=== PATIENT | male | born 1960 | race Caucasian/White ===

== ENCOUNTER 2018-10-26 10:09 | Emergency (ER) | payer OTHER, MEDICAID, SELFPAY ==
[2018-10-26 10:23] VITALS: BP 144/90; PULSE 84; RESP 12; TEMP 37; O2SAT 97
--- NOTE | 2018-10-26 11:04 | ED.EXTPRO ---
HPI - Extremity Problem General Chief complaint: Extremity Problem,Nontraumatic Stated complaint: Tvt's - Blood Clots in legs Time Seen by Provider: 10/26/18 11:04 Source: patient Mode of arrival: ambulatory Limitations: no limitations History of Present Illness HPI Narrative: 58-year-old male who was seen at [facility] 2 days ago was diagnosed with bilateral lower extremity DVTs. He has a history of DVTs and pulmonary embolism. He states that currently is not having any chest pain or shortness of breath. He is on Pradaxa. He states that he is only occasionally taking this medication because of logistical issues with picking it up. He has been taking it since the diagnosis 3 days ago. He reports today because he continues to have lower extremity swelling and pain. Related Data Home Medications Medication Instructions Recorded Confirmed multivitamin [Multiple Vitamins] 1 tab PO QDAY #0 tab 04/01/16 losartan 50 mg PO DAILY #0 10/08/16 10/26/18 atorvastatin 20 mg PO DAILY 10/26/18 10/26/18 dabigatran etexilate [Pradaxa] 150 mg PO BID 10/26/18 10/26/18 Previous Rx's Medication Instructions Recorded polyethylene glycol 3350 [Miralax] 17 gm PO QDAY #14 gm 10/08/16 furosemide [Lasix] 40 mg PO DAILY 3 Days #6 tab 10/26/18 Review of Systems Constitutional Denies fever(s) Cardiovascular Denies chest pain and Denies dyspnea Respiratory Denies dyspnea Gastrointestinal Gastrointestinal: Denies abdominal pain Musculoskeletal Comments: Lower extremity pain and swelling Integumentary/Breasts Denies lesions and Denies rash Neurologic Denies behavioral changes and Denies confusion Psychiatric Denies behavioral changes and Denies confusion Hematologic/Lymphatic Comments: History of DVTs and PEs [facility] Medical History DVT (deep venous thrombosis) (Acute) Pulmonary embolism (Acute) Social History Smoking Status: Current every day smoker Social History Smoking Status: Current every day smoker Exam Initial Vital Signs Initial Vital Signs: Vital Signs Temperature 98.6 F 10/26/18 10:23 Pulse Rate 84 10/26/18 10:23 Respiratory Rate 12 10/26/18 10:23 Blood Pressure 144/90 H 10/26/18 10:23 Pulse Oximetry 97 10/26/18 10:23 Const General: cooperative, comfortable, well developed, well groomed and No acute distress Orientation: alert, awake and oriented x3 HENMT Head: normal to inspection and normocephalic Resp Effort & Inspection: normal respiratory effort Auscultation: clear to auscultation bilaterally Cardio Rate: regular rate Rhythm: regular rhythm Pulses: radial pulses present and dorsalis pedis present bilaterally GI Inspection: non-distended Skin Lesions: no lesions Rashes: no rashes Neuro Sensory Exam: no sensory deficits noted Extrem General: No cyanosis Other: Patient with bilateral lower extremity swelling from the knees to the ankles. Left greater than right. Psych Appearance: grossly normal and well kempt Course Orders Ordered: ED Orders 10/26/18 10:35 EKG-12 Lead Stat 10/26/18 11:26 Basic Metabolic Panel Stat Complete Blood Count AUTO DIFF Stat Partial Thromboplastin Time Stat Prothrombin Time INR Stat Vital Signs - 8 hr 10/26/18 10:23 10/26/18 12:32 10/26/18 12:45 Temperature 98.6 F Pulse Rate 84 75 68 Respiratory Rate 12 17 Blood Pressure 144/90 H 157/83 H Blood Pressure [Right Arm] 157/83 H Pulse Oximetry 97 97 94 MDM - Extremity (Nontraumatic) Lab Data Result diagrams: 10/26/18 11:26 10/26/18 11:26 Lab Results 10/26/18 10/26/18 10/26/18 Range/Units 11:26 11:26 11:26 WBC 5.0 (4.5-11.0) X10^3/uL RBC 4.74 (4.5-5.9) X10^6/uL Hgb 15.3 (13.5-17.5) g/dL Hct 46.1 (41-53) % MCV 97.2 (80-100) fL MCH 32.2 (26-34) PG MCHC 33.1 (30-36) % RDW 16.0 H (11.6-14.8) % Plt Count 51 L (150-400) X10^3/uL Neut % (Auto) 72.8 (50-75) % Lymph % (Auto) 13.8 L (25-40) % [place] % (Auto) 11.7 (3-14) % Eos % (Auto) 1.1 L (2-4) % Baso % (Auto) 0.6 (0-2) % Neut # (Auto) 3600 (5857-6489) /uL Lymph # (Auto) 700 L (1262-0579) /uL [place] # (Auto) 600 (0-900) /uL Eos # (Auto) 100 (0-450) /uL Baso # (Auto) 0 (0-100) /uL PT 12.1 (10.1-12.7) SECONDS INR 1.0 (0.9-1.3) APTT 45 H (26.4-36.2) SECONDS Sodium 133 L (137-145) mmol/L Potassium 3.7 (3.4-5.1) mmol/L Chloride 97 L (98-107) mmol/L Carbon Dioxide 28 (22-32) mmol/L BUN 11 (9-20) mg/dL Creatinine 0.60 L (0.66-1.25) mg/dL Estimated GFR > 60.0 (>60) mL/min BUN/Creatinine Ratio 18.3 (6-22) Glucose 105 (80-110) mg/dL Calcium 9.0 (8.4-10.2) mg/dL MDM Narrative Medical decision making narrative: Patient without chest pain or shortness of breath. He is currently on Pradaxa. He has known bilateral lower extremity DVTs. I was able to review the notes from this outside emergency visit and saw the ultrasound report. He has been taking his Pradaxa. Informed him that is important he continues this medication. There is no signs of cellulitis. No signs of ischemia. I suspect the swelling and the pain is secondary to the clot burden. His labs here were unremarkable. Will send home with a couple days of Lasix to see if this does not help some of his swelling. He has a follow-up on Friday with his primary doctor. Patient was given follow-up instructions and return precautions. He expressed understanding and agreement plan Discharge Plan Departure Patient Disposition: Home Clinical Impression: DVT (deep venous thrombosis) Qualifiers: DVT location: lower extremity Affected thrombotic vein of extremity: unspecified vein of extremity Chronicity: acute Laterality: bilateral Qualified Code(s): I82.403 - Acute embolism and thrombosis of unspecified deep veins of lower extremity, bilateral Discharge Date/Time: 10/26/18 12:46 Interventions: ED Discharge Assessment Last Done: 10/26/18 12:45 Instructions: DI for Deep Vein Thrombosis Activity Restrictions/Additional Instructions: You do need to keep your follow-up with your primary doctor on Friday. Continue to take your Pradaxa. Return to the emergency department for any chest pain or shortness of breath. Keep your legs elevated as much as possible. Prescriptions: New furosemide [Lasix] 20 mg tablet 40 mg PO DAILY 3 Days Qty: 6 RF: 0 No Action multivitamin [Multiple Vitamins] 1 EACH tablet 1 tab PO QDAY Qty: 0 RF: 0 losartan 50 MG tablet 50 mg PO DAILY Qty: 0 RF: 0 polyethylene glycol 3350 [Miralax] 17 GM powder in packet 17 gm PO QDAY Qty: 14 RF: 0 atorvastatin 20 mg tablet 20 mg PO DAILY RF: 0 Pradaxa 150 mg capsule 150 mg PO BID RF: 0
[2018-10-26 11:34] LABS: Add Manual Diff / Slide Review NO; Basophils Absolute Auto 0 /uL (0-100); Basophils Percent Auto 0.6 % (0-2); Eosinophils Absolute Auto 100 /uL (0-450); Eosinophils Percent Auto 1.1 % (2-4); Hematocrit 46.1 % (41-53); Hemoglobin 15.3 g/dL (13.5-17.5); Lymphocytes Absolute Auto 700 /uL (1100-4500); Lymphocytes Percent Auto 13.8 % (25-40); Mean Corpuscular HGB Conc 33.1 % (30-36); Mean Corpuscular Hemoglobin 32.2 PG (26-34); Mean Corpuscular Volume 97.2 fL (80-100); Monocytes Absolute Auto 600 /uL (0-900); Monocytes Percent Auto 11.7 % (3-14); Neutrophils Absolute Auto 3600 /uL (1500-7000); Neutrophils Percent Auto 72.8 % (50-75); Platelet Count 51 X10^3/uL (150-400); Red Blood Cell Count 4.74 X10^6/uL (4.5-5.9)
[2018-10-26 11:44] LABS: Prothrombin Time 12.1 SECONDS (10.1-12.7)
[2018-10-26 11:47] LABS: PTT Partial Thromboplastin Tim 45 SECONDS (26.4-36.2)
[2018-10-26 11:51] LABS: BUN Creatinine Ratio 18.3 (6-22); Blood Urea Nitrogen 11 mg/dL (9-20); Carbon Dioxide 28 mmol/L (22-32); Chloride 97 mmol/L (98-107); Estimated Glomerular Filt Rate > 60.0 mL/min (>60); Glucose 105 mg/dL (80-110); HEMOLYSIS 43 (0-50); Potassium 3.7 mmol/L (3.4-5.1); Sodium 133 mmol/L (137-145)
[2018-10-26 12:32] VITALS: BP 157/83; PULSE 75; RESP 17; O2SAT 97
[2018-10-26 12:45] VITALS: BP 157/83; PULSE 68; O2SAT 94
== END 2018-10-26 12:46 | disposition home or self-care (01) ==
PROVIDERS: Emergency Provider Emergency Medicine
DX: I82.403 Acute embolism and thrombosis of unspecified deep veins of lower extremity, bilateral (principal); Z86.718 Personal history of other venous thrombosis and embolism; Z86.711 Personal history of pulmonary embolism; Z79.02 Long term (current) use of antithrombotics/antiplatelets
CPT/HCPCS: 36415; 36591; 80048; 85025; 85610; 85730; 93005; 99282; 99284

== ENCOUNTER 2019-01-13 16:30 | Emergency (ER) | payer OTHER, MEDICAID, SELFPAY ==
[2019-01-13] VITALS (8 sets, daily range): BP systolic 85–133; BP diastolic 62–87; PULSE 69–101; RESP 18–23; TEMP 36.8; O2SAT 91–96
--- NOTE | 2019-01-13 16:39 | DI.CT.S_ITS ---
PROCEDURE: CT HEAD/BRAIN WO CON INDICATIONS: syncope, multiple falls, +anticoags TECHNIQUE: Noncontrast 4.5 mm thick angled axial sections acquired from the foramen magnum to the vertex, with coronal and sagittal reformats. For radiation dose reduction, the following was used: automated exposure control, adjustment of mA and/or kV according to patient size. COMPARISON: [facility], CT, CT FACIAL BONES WITHOUT CONTRAST, 07/14/2018, 15:06. [facility], CT, CT CERVICAL SPINE WITHOUT CONTRAST, 07/14/2018, 15:06. [facility], CT, CT HEAD WITHOUT CONTRAST, 07/08/2018, 15:53. [facility], CT, CT HEAD WITHOUT CONTRAST, 11/14/2017, 21:25. FINDINGS: Image quality: Excellent. CSF spaces: Basal cisterns are patent. No extra-axial fluid collections. Ventricles are normal in size and shape. Brain: No midline shift. No intracranial masses or hemorrhage. Richter-white matter interface is normal. There is severe periventricular and subcortical white matter hypoattenuation compatible with chronic microvascular ischemic changes. There are bilateral chronic lacunar infarcts involving the bilateral basal ganglia and extending toward the bilateral weber radiata, stable to comparison exam 07/08/18. Skull and face: Calvarium and visualized facial bones are intact, without suspicious lesions. Sinuses: Visualized sinuses and mastoids are clear. IMPRESSION: No acute intracranial abnormality. Chronic findings as described above. Dictated by: Dewayne Can M.D. on 01/13/2019 at 17:00 Approved by: Dewayne Can M.D. on 01/13/2019 at 17:05
--- NOTE | 2019-01-13 16:40 | DI.RAD.S_ITS ---
PROCEDURE: XR CHEST 1V INDICATIONS: syncope, dizziness, mult falls TECHNIQUE: One view of the chest was acquired. COMPARISON: [facility], , CHEST 1 VIEW, 06/22/2016, 3:23. FINDINGS: Surgical changes and devices: None. Lungs and pleura: Mild hazy opacities are noted projecting over the left perihilar region and lateral left lung base. No pleural effusions or pneumothorax. There is mild prominence of the pulmonary vasculature. Mediastinum: Mediastinal contours appear normal. Heart size is normal. Bones and chest wall: No suspicious bony lesions. Overlying soft tissues appear unremarkable. IMPRESSION: Mild hazy opacities projecting over the left perihilar region and lateral left lung base likely representing atelectasis, less likely aspiration or pneumonia. Dictated by: Dewayne Can M.D. on 01/13/2019 at 17:05 Approved by: Dewayne Can M.D. on 01/13/2019 at 17:07
[2019-01-13 16:56] LABS: Add Manual Diff / Slide Review NO; Basophils Absolute Auto 0 /uL (0-100); Basophils Percent Auto 0.5 % (0-2); Eosinophils Absolute Auto 200 /uL (0-450); Eosinophils Percent Auto 2.3 % (2-4); Hematocrit 47.5 % (41-53); Hemoglobin 16.4 g/dL (13.5-17.5); Lymphocytes Absolute Auto 2600 /uL (1100-4500); Lymphocytes Percent Auto 28.2 % (25-40); Mean Corpuscular HGB Conc 34.4 % (30-36); Mean Corpuscular Hemoglobin 32.2 PG (26-34); Mean Corpuscular Volume 93.7 fL (80-100); Monocytes Absolute Auto 800 /uL (0-900); Monocytes Percent Auto 8.2 % (3-14); Neutrophils Absolute Auto 5600 /uL (1500-7000); Neutrophils Percent Auto 60.8 % (50-75); Platelet Count 91 X10^3/uL (150-400); Red Blood Cell Count 5.07 X10^6/uL (4.5-5.9); Red Cell Distribution Width 16.9 % (11.6-14.8); White Blood Cell Count 9.1 X10^3/uL (4.5-11.0)
--- NOTE | 2019-01-13 16:56 | ED.DIZZY ---
HPI - Dizziness <LANA Lennon-BC - Last Filed: 01/13/19 21:56> General Chief Complaint: Dizziness Stated Complaint: near syncope Time Seen by Provider: 01/13/19 16:44 Source: patient and EMS Mode of arrival: EMS Limitations: no limitations History of Present Illness HPI Narrative: The patient is a 58-year-old male with history of DVT and PE current everyday smoker who presents with a chief complaint of dizziness. He states he has been dizzy for several days. He states he had several falls today because he was dizzy. He admits to drinking hard alcohol so far today. He denies any chest pain or shortness of breath. Denies any loss of consciousness or back pain. He denies any neck pain new incontinence of bowel incontinence of bladder or saddle anesthesia. He states he started some new medications recently but is not sure what or when he started them. He states he did not want to come to the hospital, but some to call 911 after they saw him fall. He does take Pradaxa. Related Data Home Medications Medication Instructions Recorded Confirmed losartan 50 mg PO DAILY #0 10/08/16 01/13/19 atorvastatin 20 mg PO DAILY 10/26/18 01/13/19 dabigatran etexilate [Pradaxa] 150 mg PO BID 10/26/18 01/13/19 carvedilol 3.125 mg PO BID 01/13/19 01/13/19 duloxetine 30 mg PO BID 01/13/19 01/13/19 Previous Rx's Medication Instructions Recorded doxycycline hyclate 100 mg PO BID #20 cap 01/13/19 Allergies Allergy/AdvReac Type Severity Reaction Status Date / Time No Known Drug Allergies Allergy Verified 01/13/19 17:32 Review of Systems <LANA Lennon-BC - Last Filed: 01/13/19 21:56> Review of Systems GENERAL: Denies chills, fatigue, malaise, fever, sweats. HEENT: Denies sinus pain, ear pain, sore throat, difficulty swallowing, dizziness. RESPIRATORY: Denies dyspnea, cough, wheezing, hemoptysis, sputum. CARDIOVASCULAR: See HPI GASTROINTESTINAL: Denies nausea, vomiting, abdominal pain, diarrhea, constipation, melena. : Denies dysuria, frequency, incontinence, hematuria, urinary retention. MUSCULOSKELETAL: denies weakness, joint pain, or bony pain SKIN: Denies rash, skin lesions, or other NEUROLOGIC: See HPI PSYCHIATRIC: See HPI 12 point review of systems is negative except for those stated above PFSH <GELA Lennon - Last Filed: 01/13/19 21:56> Medical History DVT (deep venous thrombosis) (Acute) Pulmonary embolism (Acute) Social History Smoking Status: Current every day smoker Social History Smoking Status: Current every day smoker Exam <GELA Lennon - Last Filed: 01/13/19 21:56> Narrative Exam Narrative: GENERAL: unkempt gentleman with odor of alcohol HEAD: Atraumatic. Normocephalic. No temporal or scalp tenderness. EYES: Pupils equal round and reactive. Extraocular motions intact. No scleral icterus. No injection or drainage. ENT: Nose without bleeding, purulent drainage or septal hematoma. Throat without erythema, tonsillar hypertrophy or exudate. Uvula midline. Airway patent. NECK: Trachea midline. No JVD or lymphadenopathy. Supple, nontender, no meningeal signs. CARDIOVASCULAR: Regular rate and rhythm without murmurs, gallops, or rubs. RESPIRATORY: Clear to auscultation. Breath sounds equal bilaterally. No wheezes, rales, or rhonchi. No cough. No increased respiratory effort. No accessory muscle use. GASTROINTESTINAL: Abdomen soft, non-tender, nondistended. No hepato-splenomegaly, or palpable masses. No guarding. Active bowel sounds all 4 quadrants. EXTREMITIES: No clubbing, cyanosis, or edema. No joint tenderness, effusion, or edema noted. BACK: Nontender without deformity or crepitance. No flank tenderness. No pain to CT or L-spine palpation. NEURO: AOx3. Slightly slurred speech. No gross cranial nerve deficit. SKIN: No rash or erythema. Earl appearance. Initial Vital Signs Initial Vital Signs: Vital Signs Pulse Rate 83 01/13/19 16:36 Respiratory Rate 23 01/13/19 16:36 Blood Pressure 90/64 01/13/19 16:36 Pulse Oximetry 94 01/13/19 16:36 <Yanci Recinos DO - Last Filed: 01/20/19 08:24> Initial Vital Signs Initial Vital Signs: Vital Signs Pulse Rate 83 01/13/19 16:36 Respiratory Rate 23 01/13/19 16:36 Blood Pressure 90/64 01/13/19 16:36 Pulse Oximetry 94 01/13/19 16:36 Course <LANA Lennon-BC - Last Filed: 01/13/19 21:56> Orders Ordered: Discontinued Medications Doxycycline Hyclate (Vibramycin) 100 mg PO NOW ONE Stop: 01/13/19 21:42 Last Admin: 01/13/19 21:56 Dose: 100 mg Sodium Chloride (Normal Saline 0.9%) 1,000 mls @ 1,000 mls/hr IV BOLUS ONE Stop: 01/13/19 19:17 Last Infusion: 01/13/19 19:52 Dose: 0 mls/hr Admin: 01/13/19 18:26 Dose: 1,000 mls/hr Sodium Chloride (Normal Saline 0.9%) 1,000 mls @ 1,000 mls/hr IV BOLUS PRN PRN Reason: Fluid replacement Sodium Chloride (Normal Saline 0.9%) 1,000 mls @ 1,000 mls/hr IV BOLUS ONE Stop: 01/13/19 19:56 Last Infusion: 01/13/19 21:01 Dose: 0 mls/hr Admin: 01/13/19 19:55 Dose: 1,000 mls/hr Vital Signs - 8 hr 01/13/19 16:36 01/13/19 16:50 01/13/19 17:31 Temperature 98.2 F Pulse Rate 83 88 Pulse Rate [Orthostatic Lying] Pulse Rate [Orthostatic Sitting] Pulse Rate [Orthostatic Standing] Respiratory Rate 23 18 Blood Pressure 90/64 Blood Pressure [Left Arm] 104/71 Blood Pressure [Orthostatic Lying] Blood Pressure [Orthostatic Sitting] Blood Pressure [Orthostatic Standing] Pulse Oximetry 94 95 01/13/19 18:35 01/13/19 19:02 01/13/19 19:30 Temperature Pulse Rate 82 88 Pulse Rate [Orthostatic Lying] 80 Pulse Rate [Orthostatic Sitting] 89 Pulse Rate [Orthostatic Standing] 96 H Respiratory Rate 18 19 Blood Pressure Blood Pressure [Left Arm] 113/74 113/76 Blood Pressure [Orthostatic Lying] 105/66 Blood Pressure [Orthostatic Sitting] 102/62 Blood Pressure [Orthostatic Standing] 85/65 L Pulse Oximetry 92 91 01/13/19 21:24 Temperature Pulse Rate Pulse Rate [Orthostatic Lying] 88 Pulse Rate [Orthostatic Sitting] 95 H Pulse Rate [Orthostatic Standing] 101 H Respiratory Rate Blood Pressure Blood Pressure [Left Arm] Blood Pressure [Orthostatic Lying] 132/86 Blood Pressure [Orthostatic Sitting] 123/87 Blood Pressure [Orthostatic Standing] 123/78 Pulse Oximetry <Yanci Recinos DO - Last Filed: 01/20/19 08:24> Orders Ordered: Discontinued Medications Doxycycline Hyclate (Vibramycin) 100 mg PO NOW ONE Stop: 01/13/19 21:42 Last Admin: 01/13/19 21:56 Dose: 100 mg Sodium Chloride (Normal Saline 0.9%) 1,000 mls @ 1,000 mls/hr IV BOLUS ONE Stop: 01/13/19 19:17 Last Infusion: 01/13/19 19:52 Dose: 0 mls/hr Admin: 01/13/19 18:26 Dose: 1,000 mls/hr Sodium Chloride (Normal Saline 0.9%) 1,000 mls @ 1,000 mls/hr IV BOLUS PRN PRN Reason: Fluid replacement Sodium Chloride (Normal Saline 0.9%) 1,000 mls @ 1,000 mls/hr IV BOLUS ONE Stop: 01/13/19 19:56 Last Infusion: 01/13/19 21:01 Dose: 0 mls/hr Admin: 01/13/19 19:55 Dose: 1,000 mls/hr Vital Signs - 8 hr 01/13/19 16:36 01/13/19 16:50 01/13/19 17:31 Temperature 98.2 F Pulse Rate 83 88 Pulse Rate [Orthostatic Lying] Pulse Rate [Orthostatic Sitting] Pulse Rate [Orthostatic Standing] Respiratory Rate 23 18 Blood Pressure 90/64 Blood Pressure [Left Arm] 104/71 Blood Pressure [Orthostatic Lying] Blood Pressure [Orthostatic Sitting] Blood Pressure [Orthostatic Standing] Pulse Oximetry 94 95 01/13/19 18:35 01/13/19 19:02 01/13/19 19:30 Temperature Pulse Rate 82 88 Pulse Rate [Orthostatic Lying] 80 Pulse Rate [Orthostatic Sitting] 89 Pulse Rate [Orthostatic Standing] 96 H Respiratory Rate 18 19 Blood Pressure Blood Pressure [Left Arm] 113/74 113/76 Blood Pressure [Orthostatic Lying] 105/66 Blood Pressure [Orthostatic Sitting] 102/62 Blood Pressure [Orthostatic Standing] 85/65 L Pulse Oximetry 92 91 01/13/19 21:24 Temperature Pulse Rate Pulse Rate [Orthostatic Lying] 88 Pulse Rate [Orthostatic Sitting] 95 H Pulse Rate [Orthostatic Standing] 101 H Respiratory Rate Blood Pressure Blood Pressure [Left Arm] Blood Pressure [Orthostatic Lying] 132/86 Blood Pressure [Orthostatic Sitting] 123/87 Blood Pressure [Orthostatic Standing] 123/78 Pulse Oximetry MDM - Dizziness <LANA Lennon-BC - Last Filed: 01/13/19 21:56> Lab Data Result diagrams: 01/13/19 16:48 01/13/19 16:48 Lab Results 01/13/19 01/13/19 01/13/19 Range/Units 16:48 16:48 16:48 WBC 9.1 (4.5-11.0) X10^3/uL RBC 5.07 (4.5-5.9) X10^6/uL Hgb 16.4 (13.5-17.5) g/dL Hct 47.5 (41-53) % MCV 93.7 (80-100) fL MCH 32.2 (26-34) PG MCHC 34.4 (30-36) % RDW 16.9 H (11.6-14.8) % Plt Count 91 L (150-400) X10^3/uL Neut % (Auto) 60.8 (50-75) % Lymph % (Auto) 28.2 (25-40) % [place] % (Auto) 8.2 (3-14) % Eos % (Auto) 2.3 (2-4) % Baso % (Auto) 0.5 (0-2) % Neut # (Auto) 5600 (9497-4475) /uL Lymph # (Auto) 2600 (8926-5329) /uL [place] # (Auto) 800 (0-900) /uL Eos # (Auto) 200 (0-450) /uL Baso # (Auto) 0 (0-100) /uL PT 12.9 H (10.1-12.7) SECONDS INR 1.1 (0.9-1.3) Sodium 141 (137-145) mmol/L Potassium 4.5 (3.4-5.1) mmol/L Chloride 97 L (98-107) mmol/L Carbon Dioxide 25 (22-32) mmol/L BUN 21 H (9-20) mg/dL Creatinine 1.10 (0.66-1.25) mg/dL Estimated GFR > 60.0 (>60) mL/min BUN/Creatinine Ratio 19.1 (6-22) Glucose 93 (80-110) mg/dL Calcium 9.2 (8.4-10.2) mg/dL Total Bilirubin 1.0 (0.2-1.3) mg/dL AST 238 H (17-59) IU/L ALT 153 H (21-72) IU/L Alkaline Phosphatase 87 (38-126) U/L Total Creatine Kinase 128 (55-170) U/L CK-MB (CK-2) 2.70 H (<2.37) ng/mL CK-MB (CK-2) Rel Index 2.1 (1.5-5.0) % Troponin I < 0.012 (0.01-0.034) ng/mL B-Natriuretic Peptide (<100) Total Protein 8.1 (6.3-8.2) g/dL Albumin 4.7 (3.5-5.0) g/dL Globulin 3.4 (1.7-4.1) g/dL Albumin/Globulin Ratio 1.4 (1.0-2.8) Urine Color Urine Appearance Urine pH (4.5-8.0) Ur Specific [place] (1.000-1.035) Urine Protein (Negative) Urine Glucose (UA) (Negative) g/dL Urine Ketones (NEGATIVE) Urine Occult Blood (Negative) Urine Nitrate (Negative) Urine Bilirubin (NEGATIVE) Urine Urobilinogen (0.2) E.U./dL Ur Leukocyte Esterase (NEGATIVE) Urine RBC (0-5/HPF) Urine WBC (0-5/HPF) Ur Squamous Epith Cells (0-5/HPF) Urine Bacteria (None) Hyaline Casts (None) Ur Culture Indicated? Urine Opiates Screen (Negative) Ur Oxycodone Screen (Negative) Urine Methadone Screen (Negative) Ur Barbiturates Screen (Negative) U Tricyclic Antidepress (Negative) Ur Phencyclidine Scrn (Negative) Ur Amphetamines Screen (Negative) U Methamphetamines Scrn (Negative) Ur MDMA Scrn (Ecstasy) (Negative) U Benzodiazepines Scrn (Negative) Urine Cocaine Screen (Negative) U Marijuana (THC) Screen (Negative) Ethyl Alcohol mg/dL 01/13/19 01/13/19 01/13/19 Range/Units 16:48 16:48 19:25 WBC (4.5-11.0) X10^3/uL RBC (4.5-5.9) X10^6/uL Hgb (13.5-17.5) g/dL Hct (41-53) % MCV (80-100) fL MCH (26-34) PG MCHC (30-36) % RDW (11.6-14.8) % Plt Count (150-400) X10^3/uL Neut % (Auto) (50-75) % Lymph % (Auto) (25-40) % [place] % (Auto) (3-14) % Eos % (Auto) (2-4) % Baso % (Auto) (0-2) % Neut # (Auto) (6168-0646) /uL Lymph # (Auto) (8388-1849) /uL [place] # (Auto) (0-900) /uL Eos # (Auto) (0-450) /uL Baso # (Auto) (0-100) /uL PT (10.1-12.7) SECONDS INR (0.9-1.3) Sodium (137-145) mmol/L Potassium (3.4-5.1) mmol/L Chloride (98-107) mmol/L Carbon Dioxide (22-32) mmol/L BUN (9-20) mg/dL Creatinine (0.66-1.25) mg/dL Estimated GFR (>60) mL/min BUN/Creatinine Ratio (6-22) Glucose (80-110) mg/dL Calcium (8.4-10.2) mg/dL Total Bilirubin (0.2-1.3) mg/dL AST (17-59) IU/L ALT (21-72) IU/L Alkaline Phosphatase (38-126) U/L Total Creatine Kinase 98 (55-170) U/L CK-MB (CK-2) TNP (<2.37) ng/mL CK-MB (CK-2) Rel Index TNP (1.5-5.0) % Troponin I < 0.012 (0.01-0.034) ng/mL B-Natriuretic Peptide < 100 (<100) Total Protein (6.3-8.2) g/dL Albumin (3.5-5.0) g/dL Globulin (1.7-4.1) g/dL Albumin/Globulin Ratio (1.0-2.8) Urine Color Urine Appearance Urine pH (4.5-8.0) Ur Specific [place] (1.000-1.035) Urine Protein (Negative) Urine Glucose (UA) (Negative) g/dL Urine Ketones (NEGATIVE) Urine Occult Blood (Negative) Urine Nitrate (Negative) Urine Bilirubin (NEGATIVE) Urine Urobilinogen (0.2) E.U./dL Ur Leukocyte Esterase (NEGATIVE) Urine RBC (0-5/HPF) Urine WBC (0-5/HPF) Ur Squamous Epith Cells (0-5/HPF) Urine Bacteria (None) Hyaline Casts (None) Ur Culture Indicated? Urine Opiates Screen (Negative) Ur Oxycodone Screen (Negative) Urine Methadone Screen (Negative) Ur Barbiturates Screen (Negative) U Tricyclic Antidepress (Negative) Ur Phencyclidine Scrn (Negative) Ur Amphetamines Screen (Negative) U Methamphetamines Scrn (Negative) Ur MDMA Scrn (Ecstasy) (Negative) U Benzodiazepines Scrn (Negative) Urine Cocaine Screen (Negative) U Marijuana (THC) Screen (Negative) Ethyl Alcohol 264 mg/dL 01/13/19 01/13/19 Range/Units 19:45 19:45 WBC (4.5-11.0) X10^3/uL RBC (4.5-5.9) X10^6/uL Hgb (13.5-17.5) g/dL Hct (41-53) % MCV (80-100) fL MCH (26-34) PG MCHC (30-36) % RDW (11.6-14.8) % Plt Count (150-400) X10^3/uL Neut % (Auto) (50-75) % Lymph % (Auto) (25-40) % [place] % (Auto) (3-14) % Eos % (Auto) (2-4) % Baso % (Auto) (0-2) % Neut # (Auto) (6006-5973) /uL Lymph # (Auto) (3255-0155) /uL [place] # (Auto) (0-900) /uL Eos # (Auto) (0-450) /uL Baso # (Auto) (0-100) /uL PT (10.1-12.7) SECONDS INR (0.9-1.3) Sodium (137-145) mmol/L Potassium (3.4-5.1) mmol/L Chloride (98-107) mmol/L Carbon Dioxide (22-32) mmol/L BUN (9-20) mg/dL Creatinine (0.66-1.25) mg/dL Estimated GFR (>60) mL/min BUN/Creatinine Ratio (6-22) Glucose (80-110) mg/dL Calcium (8.4-10.2) mg/dL Total Bilirubin (0.2-1.3) mg/dL AST (17-59) IU/L ALT (21-72) IU/L Alkaline Phosphatase (38-126) U/L Total Creatine Kinase (55-170) U/L CK-MB (CK-2) (<2.37) ng/mL CK-MB (CK-2) Rel Index (1.5-5.0) % Troponin I (0.01-0.034) ng/mL B-Natriuretic Peptide (<100) Total Protein (6.3-8.2) g/dL Albumin (3.5-5.0) g/dL Globulin (1.7-4.1) g/dL Albumin/Globulin Ratio (1.0-2.8) Urine Color Yellow Urine Appearance Clear Urine pH 6.5 (4.5-8.0) Ur Specific [place] 1.010 (1.000-1.035) Urine Protein Negative (Negative) Urine Glucose (UA) Negative (Negative) g/dL Urine Ketones Negative (NEGATIVE) Urine Occult Blood Negative (Negative) Urine Nitrate Negative (Negative) Urine Bilirubin Negative (NEGATIVE) Urine Urobilinogen 0.2 (0.2) E.U./dL Ur Leukocyte Esterase Negative (NEGATIVE) Urine RBC 0-1/hpf (0-5/HPF) Urine WBC 0-1/hpf (0-5/HPF) Ur Squamous Epith Cells 0-1 /hpf (0-5/HPF) Urine Bacteria None seen (None) Hyaline Casts 1-5/lpf (None) Ur Culture Indicated? Cult not indicated Urine Opiates Screen Negative (Negative) Ur Oxycodone Screen Negative (Negative) Urine Methadone Screen Negative (Negative) Ur Barbiturates Screen Negative (Negative) U Tricyclic Antidepress Negative (Negative) Ur Phencyclidine Scrn Negative (Negative) Ur Amphetamines Screen Negative (Negative) U Methamphetamines Scrn Negative (Negative) Ur MDMA Scrn (Ecstasy) Negative (Negative) U Benzodiazepines Scrn Negative (Negative) Urine Cocaine Screen Negative (Negative) U Marijuana (THC) Screen Negative (Negative) Ethyl Alcohol mg/dL Imaging Data CT scan - head: Radiologist's impression: [address] [address] [address] Scan Report Signed Patient: Andrea Pastrana DMR#: [id number] : 9Acct:[id number] Age/Sex: 58 / MDate of Service: 01/13/19 Loc: ED Accession Number: [id number] Procedure: CT head/brain wo con Ordering Provider: Yanci Recinos D.O. PROCEDURE: CT HEAD/BRAIN WO CON INDICATIONS: syncope, multiple falls, +anticoags TECHNIQUE: Noncontrast 4.5 mm thick angled axial sections acquired from the foramen magnum to the vertex, with coronal and sagittal reformats. For radiation dose reduction, the following was used: automated exposure control, adjustment of mA and/or kV according to patient size. COMPARISON: [facility], CT, CT FACIAL BONES WITHOUT CONTRAST, 07/14/2018, 15:06. [facility], CT, CT CERVICAL SPINE WITHOUT CONTRAST, 07/14/2018, 15:06. [facility], CT, CT HEAD WITHOUT CONTRAST, 07/08/2018, 15:53. [facility], CT, CT HEAD WITHOUT CONTRAST, 11/14/2017, 21:25. FINDINGS: Image quality: Excellent. CSF spaces: Basal cisterns are patent. No extra-axial fluid collections. Ventricles are normal in size and shape. Brain: No midline shift. No intracranial masses or hemorrhage. Richter-white matter interface is normal. There is severe periventricular and subcortical white matter hypoattenuation compatible with chronic microvascular ischemic changes. There are bilateral chronic lacunar infarcts involving the bilateral basal ganglia and extending toward the bilateral weber radiata, stable to comparison exam 07/08/18. Skull and face: Calvarium and visualized facial bones are intact, without suspicious lesions. Sinuses: Visualized sinuses and mastoids are clear. IMPRESSION: No acute intracranial abnormality. Chronic findings as described above. Dictated by: Dewayne Can M.D. on 01/13/2019 at 17:00 Approved by: Dewayne Can M.D. on 01/13/2019 at 17:05 Chest x-ray: Radiologist's impression: [address] [address] XRay Report Signed Patient: Andrea Pastrana [facility]#: [id number] : 9Acct:[id number] Age/Sex: 58 / MDate of Service: 01/13/19 Loc: ED Accession Number: [id number] Procedure: XR chest 1V Ordering Provider: Yanci Recinos D.O. PROCEDURE: XR CHEST 1V INDICATIONS: syncope, dizziness, mult falls TECHNIQUE: One view of the chest was acquired. [facility]. FINDINGS: Surgical changes and devices: None. Lungs and pleura: Mild hazy opacities are noted projecting over the left perihilar region and lateral left lung base. No pleural effusions or pneumothorax. There is mild prominence of the pulmonary vasculature. Mediastinum: Mediastinal contours appear normal. Heart size is normal. Bones and chest wall: No suspicious bony lesions. Overlying soft tissues appear unremarkable. IMPRESSION: Mild hazy opacities projecting over the left perihilar region and lateral left lung base likely representing atelectasis, less likely aspiration or pneumonia. Dictated by: Dewayne Can M.D. on 01/13/2019 at 17:05 Approved by: Dewayne Can M.D. on 01/13/2019 at 17:07 Chest CTA: Radiologist's impression: [address] [address] [address] Scan Report Signed Patient: Andrea Pastrana [facility]#: [id number] : 9Acct:[id number] Age/Sex: 58 / MDate of Service: 01/13/19 Loc: ED Accession Number: [id number] Procedure: CT angio chest PE protocol Ordering Provider: Yanci Owens PROCEDURE: CT ANGIO CHEST PE PROTOCOL INDICATIONS: near syncope, hx pe TECHNIQUE: After the administration of intravenous contrast, 2 mm thick sections acquired from the pulmonary apices to the posterior costophrenic angles. 3-dimensional maximum intensity projection (MIP) coronal and sagittal reformats were then acquired through the thorax. For radiation dose reduction, the following was used: automated exposure control, adjustment of mA and/or kV according to patient size. COMPARISON: [facility], CT, CT HEAD/BRAIN WO CON, 01/13/2019, 16:50. [facility], CT, CT HEAD WITHOUT CONTRAST, 07/14/2018, 15:06. [facility], CT, CT CERVICAL SPINE WITHOUT CONTRAST, 07/14/2018, 15:06. [facility], CT, CT HEAD WITHOUT CONTRAST, 07/08/2018, 15:53. FINDINGS: Image quality: Excellent. Pulmonary arteries: Pulmonary arteries are normal in size, and demonstrate no intraluminal filling defects to suggest central pulmonary embolism. Lungs and pleura: No pleural effusions or pneumothoraces. There is atelectasis versus pleural parenchymal scarring at the posteromedial right lung base. There are multiple mixed solid and ground glass pulmonary noduleswith potential internal cavitation in the right upper lobe with additional groundglass opacities, and 2 cm in greatest diameter on axial image 55 of series 5. There is scattered emphysematous changes. Mediastinum: Heart size is normal, without pericardial effusion. No mediastinal or hilar adenopathy. Thoracic aorta is normal in caliber and enhancement. Bones and chest wall: There are chronic healed posterior inferior left rib fractures. No axillary or supraclavicular adenopathy. There are age-indeterminate compression deformities of the T5 and T6 vertebral bodies with approximately 30% height loss and Abdomen: There is diffuse hepatic steatosis. IMPRESSION: 1. No CTA evidence of central pulmonary embolism. 2. Mixed solid and ground glass pulmonary nodules with potential internal cavitation and ground glass opacities within the right upper lobe, concerning for pneumonia (possibly an atypical or fungal infection such as aspergillosis). Recommend followup CT to document resolution of these findings and to exclude an underlying pulmonary malignancy. 3. Diffuse hepatic steatosis. 4. Age-indeterminate fracture deformities of the T5 and T6 vertebral bodies. Correlation with point tenderness suggested. Findings discussed with referring provider MANAGER MACHINEKendal Owens by telephone by Dr. Can at approximately 9:00 PM on 01/13/19. ECG Data Attestation: I personally reviewed and interpreted this ECG as follows: Interpretation: Sinus rhythm, rate 87. ST elevations noted. No ectopy noted. Viewed by Dr Recinos MDM Narrative Medical decision making narrative: The patient is a 58-year-old male who presents with chief complaint of dizziness. He denies any falls, but given his intoxicated status, I obtained a head CT. This came back negative. The patient presented hypotensive in the 90s, and responded well to fluids. His initial set of orthostatics were positive, with his systolic dropping 85 when standing. Second set was negative. The patient was noted to have a very elevated alcohol at 268. The patient apparently presented with a combination of alcohol intoxication and dehydration. However he is resistant to believe that this is related to his dizziness. Otherwise the patient had 2-troponins, negative BNP, negative head CT. Given his near syncopal event combined with his history of PEs, I obtained a CT PA, which came back with no evidence of pulmonary embolism. There is concern of an atypical pneumonia, which I have elected to treat him with doxycycline for. I discussed it may be a fungal in nature, or an underlying pulmonary nodule. The patient states understanding. He is not exactly sure who his primary care provider is, so I referred him to the health land resource specialist. The patient had a 2nd set of orthostatics, which came back within normal limits. He expressed desire to go home. I discussed at length that he should stop drinking as much alcohol and discussed at length follow up with PCP. Discussed come back to ER for any acute concerns such as chest pain, shortness of breath etc. Of note the CT did reveal some old T-spine fractures, but the patient states these are likely old. He has no pain to palpation of T-spine at this point time, so there is no clinical correlation. <Yanci Recinos, DO - Last Filed: 01/20/19 08:24> Lab Data Lab Results 01/13/19 01/13/19 01/13/19 Range/Units 16:48 16:48 16:48 WBC 9.1 (4.5-11.0) X10^3/uL RBC 5.07 (4.5-5.9) X10^6/uL Hgb 16.4 (13.5-17.5) g/dL Hct 47.5 (41-53) % MCV 93.7 (80-100) fL MCH 32.2 (26-34) PG MCHC 34.4 (30-36) % RDW 16.9 H (11.6-14.8) % Plt Count 91 L (150-400) X10^3/uL Neut % (Auto) 60.8 (50-75) % Lymph % (Auto) 28.2 (25-40) % [place] % (Auto) 8.2 (3-14) % Eos % (Auto) 2.3 (2-4) % Baso % (Auto) 0.5 (0-2) % Neut # (Auto) 5600 (4315-0314) /uL Lymph # (Auto) 2600 (1501-3081) /uL [place] # (Auto) 800 (0-900) /uL Eos # (Auto) 200 (0-450) /uL Baso # (Auto) 0 (0-100) /uL PT 12.9 H (10.1-12.7) SECONDS INR 1.1 (0.9-1.3) Sodium 141 (137-145) mmol/L Potassium 4.5 (3.4-5.1) mmol/L Chloride 97 L (98-107) mmol/L Carbon Dioxide 25 (22-32) mmol/L BUN 21 H (9-20) mg/dL Creatinine 1.10 (0.66-1.25) mg/dL Estimated GFR > 60.0 (>60) mL/min BUN/Creatinine Ratio 19.1 (6-22) Glucose 93 (80-110) mg/dL Calcium 9.2 (8.4-10.2) mg/dL Total Bilirubin 1.0 (0.2-1.3) mg/dL AST 238 H (17-59) IU/L ALT 153 H (21-72) IU/L Alkaline Phosphatase 87 (38-126) U/L Total Creatine Kinase 128 (55-170) U/L CK-MB (CK-2) 2.70 H (<2.37) ng/mL CK-MB (CK-2) Rel Index 2.1 (1.5-5.0) % Troponin I < 0.012 (0.01-0.034) ng/mL B-Natriuretic Peptide (<100) Total Protein 8.1 (6.3-8.2) g/dL Albumin 4.7 (3.5-5.0) g/dL Globulin 3.4 (1.7-4.1) g/dL Albumin/Globulin Ratio 1.4 (1.0-2.8) Urine Color Urine Appearance Urine pH (4.5-8.0) Ur Specific [place] (1.000-1.035) Urine Protein (Negative) Urine Glucose (UA) (Negative) g/dL Urine Ketones (NEGATIVE) Urine Occult Blood (Negative) Urine Nitrate (Negative) Urine Bilirubin (NEGATIVE) Urine Urobilinogen (0.2) E.U./dL Ur Leukocyte Esterase (NEGATIVE) Urine RBC (0-5/HPF) Urine WBC (0-5/HPF) Ur Squamous Epith Cells (0-5/HPF) Urine Bacteria (None) Hyaline Casts (None) Ur Culture Indicated? Urine Opiates Screen (Negative) Ur Oxycodone Screen (Negative) Urine Methadone Screen (Negative) Ur Barbiturates Screen (Negative) U Tricyclic Antidepress (Negative) Ur Phencyclidine Scrn (Negative) Ur Amphetamines Screen (Negative) U Methamphetamines Scrn (Negative) Ur MDMA Scrn (Ecstasy) (Negative) U Benzodiazepines Scrn (Negative) Urine Cocaine Screen (Negative) U Marijuana (THC) Screen (Negative) Ethyl Alcohol mg/dL 01/13/19 01/13/19 01/13/19 Range/Units 16:48 16:48 19:25 WBC (4.5-11.0) X10^3/uL RBC (4.5-5.9) X10^6/uL Hgb (13.5-17.5) g/dL Hct (41-53) % MCV (80-100) fL MCH (26-34) PG MCHC (30-36) % RDW (11.6-14.8) % Plt Count (150-400) X10^3/uL Neut % (Auto) (50-75) % Lymph % (Auto) (25-40) % [place] % (Auto) (3-14) % Eos % (Auto) (2-4) % Baso % (Auto) (0-2) % Neut # (Auto) (2928-0886) /uL Lymph # (Auto) (6439-6292) /uL [place] # (Auto) (0-900) /uL Eos # (Auto) (0-450) /uL Baso # (Auto) (0-100) /uL PT (10.1-12.7) SECONDS INR (0.9-1.3) Sodium (137-145) mmol/L Potassium (3.4-5.1) mmol/L Chloride (98-107) mmol/L Carbon Dioxide (22-32) mmol/L BUN (9-20) mg/dL Creatinine (0.66-1.25) mg/dL Estimated GFR (>60) mL/min BUN/Creatinine Ratio (6-22) Glucose (80-110) mg/dL Calcium (8.4-10.2) mg/dL Total Bilirubin (0.2-1.3) mg/dL AST (17-59) IU/L ALT (21-72) IU/L Alkaline Phosphatase (38-126) U/L Total Creatine Kinase 98 (55-170) U/L CK-MB (CK-2) TNP (<2.37) ng/mL CK-MB (CK-2) Rel Index TNP (1.5-5.0) % Troponin I < 0.012 (0.01-0.034) ng/mL B-Natriuretic Peptide < 100 (<100) Total Protein (6.3-8.2) g/dL Albumin (3.5-5.0) g/dL Globulin (1.7-4.1) g/dL Albumin/Globulin Ratio (1.0-2.8) Urine Color Urine Appearance Urine pH (4.5-8.0) Ur Specific [place] (1.000-1.035) Urine Protein (Negative) Urine Glucose (UA) (Negative) g/dL Urine Ketones (NEGATIVE) Urine Occult Blood (Negative) Urine Nitrate (Negative) Urine Bilirubin (NEGATIVE) Urine Urobilinogen (0.2) E.U./dL Ur Leukocyte Esterase (NEGATIVE) Urine RBC (0-5/HPF) Urine WBC (0-5/HPF) Ur Squamous Epith Cells (0-5/HPF) Urine Bacteria (None) Hyaline Casts (None) Ur Culture Indicated? Urine Opiates Screen (Negative) Ur Oxycodone Screen (Negative) Urine Methadone Screen (Negative) Ur Barbiturates Screen (Negative) U Tricyclic Antidepress (Negative) Ur Phencyclidine Scrn (Negative) Ur Amphetamines Screen (Negative) U Methamphetamines Scrn (Negative) Ur MDMA Scrn (Ecstasy) (Negative) U Benzodiazepines Scrn (Negative) Urine Cocaine Screen (Negative) U Marijuana (THC) Screen (Negative) Ethyl Alcohol 264 mg/dL 01/13/19 01/13/19 Range/Units 19:45 19:45 WBC (4.5-11.0) X10^3/uL RBC (4.5-5.9) X10^6/uL Hgb (13.5-17.5) g/dL Hct (41-53) % MCV (80-100) fL MCH (26-34) PG MCHC (30-36) % RDW (11.6-14.8) % Plt Count (150-400) X10^3/uL Neut % (Auto) (50-75) % Lymph % (Auto) (25-40) % [place] % (Auto) (3-14) % Eos % (Auto) (2-4) % Baso % (Auto) (0-2) % Neut # (Auto) (6910-8486) /uL Lymph # (Auto) (7104-9434) /uL [place] # (Auto) (0-900) /uL Eos # (Auto) (0-450) /uL Baso # (Auto) (0-100) /uL PT (10.1-12.7) SECONDS INR (0.9-1.3) Sodium (137-145) mmol/L Potassium (3.4-5.1) mmol/L Chloride (98-107) mmol/L Carbon Dioxide (22-32) mmol/L BUN (9-20) mg/dL Creatinine (0.66-1.25) mg/dL Estimated GFR (>60) mL/min BUN/Creatinine Ratio (6-22) Glucose (80-110) mg/dL Calcium (8.4-10.2) mg/dL Total Bilirubin (0.2-1.3) mg/dL AST (17-59) IU/L ALT (21-72) IU/L Alkaline Phosphatase (38-126) U/L Total Creatine Kinase (55-170) U/L CK-MB (CK-2) (<2.37) ng/mL CK-MB (CK-2) Rel Index (1.5-5.0) % Troponin I (0.01-0.034) ng/mL B-Natriuretic Peptide (<100) Total Protein (6.3-8.2) g/dL Albumin (3.5-5.0) g/dL Globulin (1.7-4.1) g/dL Albumin/Globulin Ratio (1.0-2.8) Urine Color Yellow Urine Appearance Clear Urine pH 6.5 (4.5-8.0) Ur Specific [place] 1.010 (1.000-1.035) Urine Protein Negative (Negative) Urine Glucose (UA) Negative (Negative) g/dL Urine Ketones Negative (NEGATIVE) Urine Occult Blood Negative (Negative) Urine Nitrate Negative (Negative) Urine Bilirubin Negative (NEGATIVE) Urine Urobilinogen 0.2 (0.2) E.U./dL Ur Leukocyte Esterase Negative (NEGATIVE) Urine RBC 0-1/hpf (0-5/HPF) Urine WBC 0-1/hpf (0-5/HPF) Ur Squamous Epith Cells 0-1 /hpf (0-5/HPF) Urine Bacteria None seen (None) Hyaline Casts 1-5/lpf (None) Ur Culture Indicated? Cult not indicated Urine Opiates Screen Negative (Negative) Ur Oxycodone Screen Negative (Negative) Urine Methadone Screen Negative (Negative) Ur Barbiturates Screen Negative (Negative) U Tricyclic Antidepress Negative (Negative) Ur Phencyclidine Scrn Negative (Negative) Ur Amphetamines Screen Negative (Negative) U Methamphetamines Scrn Negative (Negative) Ur MDMA Scrn (Ecstasy) Negative (Negative) U Benzodiazepines Scrn Negative (Negative) Urine Cocaine Screen Negative (Negative) U Marijuana (THC) Screen Negative (Negative) Ethyl Alcohol mg/dL Discharge Plan Departure Patient Disposition: Home Clinical Impression: Atypical pneumonia, Dizziness, Acute dehydration Alcohol intoxication Qualifiers: Complication of substance-induced condition: uncomplicated Qualified Code(s): F10.920 - Alcohol use, unspecified with intoxication, uncomplicated Discharge Date/Time: 01/13/19 22:11 Interventions: ED Discharge Assessment Last Done: 01/13/19 22:11 Instructions: DI for Dehydration -- Adult, DI for Alcohol Abuse, DI for Dizziness-Nonvertigo, DI for Atypical Pneumonia Activity Restrictions/Additional Instructions: Today we did lots of evaluation. You had 2-cardiac enzymes, a normal head CT, a chest CT with no evidence of pulmonary embolism. However you do have evidence of an atypical pneumonia. I have started you on an antibiotic. You have also received IV fluid, which you have responded well to. Please follow-up with primary care provider. I have given contact information to the health land resource specialist. Please come back to emergency department with any acute concerns such as chest pain, shortness of breath etc. Prescriptions: New doxycycline hyclate 100 mg capsule 100 mg PO BID Qty: 20 RF: 0 No Action losartan 50 MG tablet 50 mg PO DAILY Qty: 0 RF: 0 atorvastatin 20 mg tablet 20 mg PO DAILY RF: 0 Pradaxa 150 mg capsule 150 mg PO BID RF: 0 carvedilol 3.125 mg tablet 3.125 mg PO BID RF: 0 duloxetine 30 mg capsule,delayed release(DR/EC) 30 mg PO BID RF: 0 Referrals: [facility] [Outside] <Yanci Recinos DO - Last Filed: 01/20/19 08:24> Cosign ED Attending Mindyature Attestation: I was immediately available in the department for consultation. This documentation has been reviewed and I agree with assessment and plan. Supervised by Yanci Recinos DO
[2019-01-13 16:58] LABS: INR 1.1 (0.9-1.3); Prothrombin Time 12.9 SECONDS (10.1-12.7)
[2019-01-13 17:01] LABS: Alanine Aminotransferase 153 IU/L (21-72); Albumin 4.7 g/dL (3.5-5.0); Albumin Globulin Ratio 1.4 (1.0-2.8); Alkaline Phosphatase 87 U/L (38-126); Aspartate Aminotransferase 238 IU/L (17-59); BUN Creatinine Ratio 19.1 (6-22); Blood Urea Nitrogen 21 mg/dL (9-20); Calcium 9.2 mg/dL (8.4-10.2); Carbon Dioxide 25 mmol/L (22-32); Chloride 97 mmol/L (98-107); Creatine Kinase 128 U/L (55-170); Estimated Glomerular Filt Rate > 60.0 mL/min (>60); Globulin 3.4 g/dL (1.7-4.1); Glucose 93 mg/dL (80-110); Potassium 4.5 mmol/L (3.4-5.1); Sodium 141 mmol/L (137-145); Total Protein 8.1 g/dL (6.3-8.2)
[2019-01-13 17:02] LABS: Ethanol (ETOH) 264 mg/dL; HEMOLYSIS 69 (0-50)
[2019-01-13 17:11] LABS: Troponin I < 0.012 ng/mL (0.01-0.034)
[2019-01-13 17:18] LABS: CKMB % Relative Index 2.1 % (1.5-5.0)
[2019-01-13 18:06] LABS: B Type Natriuretic Peptide < 100 (<100)
[2019-01-13] MEDS: SODIUM CHLORIDE 0.9% 1,000 ML 1000 ML IV ×2 (18:26→19:55)
--- NOTE | 2019-01-13 18:57 | DI.CT.S_ITS ---
PROCEDURE: CT ANGIO CHEST PE PROTOCOL INDICATIONS: near syncope, hx pe TECHNIQUE: After the administration of intravenous contrast, 2 mm thick sections acquired from the pulmonary apices to the posterior costophrenic angles. 3-dimensional maximum intensity projection (MIP) coronal and sagittal reformats were then acquired through the thorax. For radiation dose reduction, the following was used: automated exposure control, adjustment of mA and/or kV according to patient size. COMPARISON: [facility], CT, CT HEAD/BRAIN WO CON, 01/13/2019, 16:50. [facility], CT, CT HEAD WITHOUT CONTRAST, 07/14/2018, 15:06. [facility], CT, CT CERVICAL SPINE WITHOUT CONTRAST, 07/14/2018, 15:06. [facility], CT, CT HEAD WITHOUT CONTRAST, 07/08/2018, 15:53. FINDINGS: Image quality: Excellent. Pulmonary arteries: Pulmonary arteries are normal in size, and demonstrate no intraluminal filling defects to suggest central pulmonary embolism. Lungs and pleura: No pleural effusions or pneumothoraces. There is atelectasis versus pleural parenchymal scarring at the posteromedial right lung base. There are multiple mixed solid and ground glass pulmonary noduleswith potential internal cavitation in the right upper lobe with additional groundglass opacities, and 2 cm in greatest diameter on axial image 55 of series 5. There is scattered emphysematous changes. Mediastinum: Heart size is normal, without pericardial effusion. No mediastinal or hilar adenopathy. Thoracic aorta is normal in caliber and enhancement. Bones and chest wall: There are chronic healed posterior inferior left rib fractures. No axillary or supraclavicular adenopathy. There are age-indeterminate compression deformities of the T5 and T6 vertebral bodies with approximately 30% height loss and Abdomen: There is diffuse hepatic steatosis. IMPRESSION: 1. No CTA evidence of central pulmonary embolism. 2. Mixed solid and ground glass pulmonary nodules with potential internal cavitation and ground glass opacities within the right upper lobe, concerning for pneumonia (possibly an atypical or fungal infection such as aspergillosis). Recommend followup CT to document resolution of these findings and to exclude an underlying pulmonary malignancy. 3. Diffuse hepatic steatosis. 4. Age-indeterminate fracture deformities of the T5 and T6 vertebral bodies. Correlation with point tenderness suggested. Findings discussed with referring provider LANA Owens by telephone by Dr. Can at approximately 9:00 PM on 01/13/19. Dictated by: Dewayne Can M.D. on 01/13/2019 at 20:50 Approved by: Dewayne Can M.D. on 01/13/2019 at 21:05
[2019-01-13 19:44] LABS: Creatine Kinase 98 U/L (55-170)
[2019-01-13 19:51] LABS: Bacteria Urine None Seen
[2019-01-13 19:53] LABS: Appearance Urine UA CLEAR; Bilirubin Urine UA NEGATIVE (NEGATIVE); Color Urine UA YELLOW; Glucose Urine UA NEGATIVE (Negative); Ketones Urine UA NEGATIVE (NEGATIVE); Leukocyte Esterase Urine UA NEGATIVE (NEGATIVE); Nitrite Urine UA NEGATIVE (Negative); Occult Blood Urine UA NEGATIVE (Negative); Protein Urine UA NEGATIVE (Negative); Urobilinogen Urine UA 0.2 E.U./dL (0.2); pH Urine UA 6.5 (4.5-8.0)
--- NOTE | 2019-01-13 19:55 | CM.MNRNOTE ---
pt received one liter of IVF normal saline from the medics. the fluids finished in the ER.
[2019-01-13 19:56] LABS: Urine Amphetamines Negative (Negative); Urine Barbiturates Negative (Negative); Urine Benzodiazepines Negative (Negative); Urine Cocaine Negative (Negative); Urine MDMA Negative (Negative); Urine Methadone Negative (Negative); Urine Methamphetamines Negative (Negative); Urine Morphine/Opi cutoff 2000 Negative (Negative); Urine Oxycodone Negative (Negative); Urine Phencyclidine Negative (Negative); Urine Tetrahydrocannabinol Negative (Negative); Urine Tricyclic Antidepressant Negative (Negative)
[2019-01-13 19:57] LABS: Troponin I < 0.012 ng/mL (0.01-0.034)
[2019-01-13 19:59] LABS: Culture Indicated Urine Cult Not Indicated; Hyaline Casts Urine 1-5/LPF; RBC Urine 0-1/HPF (0-5/HPF); Squamous Epithelial Cell Urine 0-1 /HPF (0-5/HPF); WBC Urine 0-1/HPF (0-5/HPF)
--- NOTE | 2019-01-13 21:35 | PC.NURSE ---
Pt. stable on feet.
[2019-01-13] MEDS: DOXYCYCLINE HYCLATE 100 MG TABLET PO (21:56)
== END 2019-01-13 22:11 | disposition home or self-care (01) ==
PROVIDERS: Emergency Medicine; Emergency Provider Nurse Practitioner Family
DX: J18.9 Pneumonia, unspecified organism (principal); R42 Dizziness and giddiness; E86.0 Dehydration; F10.920 Alcohol use, unspecified with intoxication, uncomplicated; W19.XXXA Unspecified fall, initial encounter; R00.0 Tachycardia, unspecified; Y90.8 Blood alcohol level of 240 mg/100 ml or more; Z79.01 Long term (current) use of anticoagulants; Z86.711 Personal history of pulmonary embolism; Z86.718 Personal history of other venous thrombosis and embolism; Z91.81 History of falling
CPT/HCPCS: 36591; 70450; 71045; 71275; 80053; 80305; 80320; 81001; 82550; 82553; 83880; 84484; 85025; 85610; 93005; 96360; 96361; 99285; Q9967

== ENCOUNTER 2019-07-26 03:36 | Emergency (ER) | payer OTHER, MEDICAID, SELFPAY ==
[2019-07-26 03:36] VITALS: BP 156/82; PULSE 87; RESP 18; TEMP 36.2; O2SAT 97; BMI 28.6
--- NOTE | 2019-07-26 03:55 | ED.EXTPRO ---
HPI - Extremity Problem General Chief complaint: Extremity Problem,Nontraumatic Stated complaint: Left Foot Pain Time Seen by Provider: 07/26/19 03:44 Source: patient and EMS Mode of arrival: EMS Limitations: no limitations History of Present Illness HPI Narrative: The patient was at the [facility], he was celebrating his birthday. He was discussing blood clots with his friends. He is complaining of left foot pain. He is drinking alcohol. He arrives here, laughing and in no apparent distress. He denies chest pain or dyspnea. He was seen at [facility] October 2018, a left DVT was found. He injuries left foot approximately 2 weeks ago. He is complaining of left mid foot pain. He was seen at [facility] for the injuries at that time. The left foot x-ray is normal. He is intoxicated. He is not a good historian, he had a new detail on the [facility] regarding the foot injury. He miscalculated the DVT by months. He is supposed to be taking Pradaxa 2 times daily. He is not compliant with medications, although he says he did take a dose today. He has had no falls or injuries. He denies recent illness. Related Data Home Medications Medication Instructions Recorded Confirmed losartan 50 mg PO DAILY #0 10/08/16 01/13/19 atorvastatin 20 mg PO DAILY 10/26/18 01/13/19 dabigatran etexilate [Pradaxa] 150 mg PO BID 10/26/18 01/13/19 carvedilol 3.125 mg PO BID 01/13/19 01/13/19 duloxetine 30 mg PO BID 01/13/19 01/13/19 Previous Rx's Medication Instructions Recorded doxycycline hyclate 100 mg PO BID #20 cap 01/13/19 dabigatran etexilate [Pradaxa] 150 mg PO BID #120 cap 07/26/19 Allergies Allergy/AdvReac Type Severity Reaction Status Date / Time No Known Drug Allergies Allergy Verified 01/13/19 17:32 Review of Systems Review of Systems ROS Unobtainable: All systems reviewed & are unremarkable except as noted in HPI and below Constitutional Constitutional: Denies chills, Denies fatigue, Denies fever(s) and Denies malaise Cardiovascular Cardiovascular: Denies chest pain, Denies syncope, Denies rapid heart rate, Denies edema and Denies dyspnea Respiratory Respiratory: Denies cough, Denies dyspnea and Denies wheezing Gastrointestinal Gastrointestinal: Denies abdominal pain and Denies vomiting Musculoskeletal Musculoskeletal: Denies back pain, Denies muscle weakness, Denies numbness and Denies tingling Integumentary/Breasts Skin/Breast: Denies pruritus, Denies erythema, Denies rash and Denies wounds Neurologic Neurologic: Denies syncope, Denies numbness and Denies tingling Psychiatric Psychiatric: Reports as per HPI Endocrine Endocrine: Denies fatigue Hematologic/Lymphatic Hematologic/Lymphatic: Reports as per HPI (The patient is anticoagulated) Allergic/Immunologic Allergic/Immunologic: Denies wheezing Patient History Medical History (Updated 07/26/19 @ 06:10 by Douglas Salazar MD) DVT (deep venous thrombosis) (Acute) Pulmonary embolism (Acute) Surgical History (Updated 07/26/19 @ 05:57 by Douglas Salazar MD) No significant past surgical history (Acute) Social History Smoking Status: Current every day smoker Smoking Status: Current every day smoker alcohol intake frequency: 3 or more drinks per day Substance Use Type: does not use Exam Initial Vital Signs Initial Vital Signs: Vital Signs Temperature 97.2 F L 07/26/19 03:36 Pulse Rate 87 07/26/19 03:36 Respiratory Rate 18 07/26/19 03:36 Blood Pressure 156/82 H 07/26/19 03:36 Pulse Oximetry 97 07/26/19 03:36 Const General: cooperative and well developed Nutritional Appearance: well nourished [facility] Head: normocephalic and atraumatic Mouth: oral mucosae normal Eyes Pupils: PERRL EOM: nystagmus Neck Neck: No JVD Resp Effort & Inspection: normal respiratory effort, able to speak in complete sentences, no respiratory distress and no use of accessory muscles Auscultation: clear to auscultation bilaterally Cardio Rate: regular rate Rhythm: regular rhythm Heart Sounds: no click, no gallops, no murmurs and no rubs Pulses: normal peripheral pulses GI Inspection: non-distended Palpation: soft, no hepatosplenomegaly, No guarding, No pulsatile mass and No tender Auscultation: normal bowel sounds Skin General: no rashes or lesions noted, No jaundice and No petechiae Neuro General: alert, oriented x3, gait normal and no focal motor deficits Cranial Nerves: nystagmus Speech: speech normal Extrem General: full ROM, no pedal edema and no calf tenderness Other: The left dorsalis pedis pulse is normal. He has tenderness in the arch the left foot, but no palpable defects. Movement at the MCPs is normal. Homans sign on the left leg is negative. Course Course Course Narrative: The patient is now a little more clear/coherent upon arrival. He is advised to stay with Pradaxa 2 times daily. He is advised recheck with his doctor in 4-6 weeks, return to an ER if he develops chest pain or problems breathing. I do not have a direct comparison of the DVT study night versus ultrasound from several months ago. By reading the reports seems like the ultrasound is somewhat larger now. I discussed the importance of being compliant with the medications. Orders Ordered: ED Orders 07/26/19 04:15 Basic Metabolic Panel Stat Complete Blood Count AUTO DIFF Stat D Dimer Stat PT [Prothrombin Time INR] Stat Partial Thromboplastin Time Stat 07/26/19 04:38 US periph venous low extrem lt Stat Vital Signs Vital signs: Vital Signs - 8 hr 07/26/19 03:36 Temperature 97.2 F L Pulse Rate 87 Respiratory Rate 18 Blood Pressure 156/82 H Pulse Oximetry 97 MDM - Extremity (Nontraumatic) Lab Data Result diagrams: 07/26/19 04:15 07/26/19 04:15 Labs: Lab Results 07/26/19 07/26/19 07/26/19 Range/Units 04:15 04:15 04:15 WBC 4.2 L (4.5-11.0) X10^3/uL RBC 4.86 (4.5-5.9) X10^6/uL Hgb 14.9 (13.5-17.5) g/dL Hct 44.9 (41-53) % MCV 92.4 (80-100) fL MCH 30.7 (26-34) PG MCHC 33.3 (30-36) % RDW 14.9 H (11.6-14.8) % Plt Count 147 L (150-400) X10^3/uL Neut % (Auto) 46.1 L (50-75) % Lymph % (Auto) 35.8 (25-40) % [place] % (Auto) 12.9 (3-14) % Eos % (Auto) 4.5 H (2-4) % Baso % (Auto) 0.7 (0-2) % Neut # (Auto) 1900 (3219-6058) /uL Lymph # (Auto) 1500 (5788-8852) /uL [place] # (Auto) 500 (0-900) /uL Eos # (Auto) 200 (0-450) /uL Baso # (Auto) 0 (0-100) /uL PT (10.1-12.7) SECONDS INR (0.9-1.3) APTT (26.4-36.2) SECONDS D-Dimer 637 H (<230) ng/mL Sodium 144 (137-145) mmol/L Potassium 3.8 (3.4-5.1) mmol/L Chloride 102 (98-107) mmol/L Carbon Dioxide 33 H (22-32) mmol/L BUN 10 (9-20) mg/dL Creatinine 0.70 (0.66-1.25) mg/dL Estimated GFR > 60.0 (>60) mL/min BUN/Creatinine Ratio 14.3 (6-22) Glucose 108 (80-110) mg/dL Calcium 8.9 (8.4-10.2) mg/dL 02/09/09 Range/Units 04:15 WBC (4.5-11.0) X10^3/uL RBC (4.5-5.9) X10^6/uL Hgb (13.5-17.5) g/dL Hct (41-53) % MCV (80-100) fL MCH (26-34) PG MCHC (30-36) % RDW (11.6-14.8) % Plt Count (150-400) X10^3/uL Neut % (Auto) (50-75) % Lymph % (Auto) (25-40) % [place] % (Auto) (3-14) % Eos % (Auto) (2-4) % Baso % (Auto) (0-2) % Neut # (Auto) (5576-5314) /uL Lymph # (Auto) (5760-7033) /uL [place] # (Auto) (0-900) /uL Eos # (Auto) (0-450) /uL Baso # (Auto) (0-100) /uL PT 12.9 H (10.1-12.7) SECONDS INR 1.1 (0.9-1.3) APTT 30 D (26.4-36.2) SECONDS D-Dimer (<230) ng/mL Sodium (137-145) mmol/L Potassium (3.4-5.1) mmol/L Chloride (98-107) mmol/L Carbon Dioxide (22-32) mmol/L BUN (9-20) mg/dL Creatinine (0.66-1.25) mg/dL Estimated GFR (>60) mL/min BUN/Creatinine Ratio (6-22) Glucose (80-110) mg/dL Calcium (8.4-10.2) mg/dL Imaging Data Left leg venous ultrasound:: Radiologist's Impression: Extensive noncompressible thrombus is present throughout the majority of the superficial femoral vein. Partially compressible thrombus in the popliteal vein. Discharge Plan Departure Patient Disposition: Home Clinical Impression: Deep vein thrombosis of left femoral vein Qualifiers: Chronicity: acute Qualified Code(s): I82.412 - Acute embolism and thrombosis of left femoral vein Sprain of left foot Qualifiers: Encounter type: initial encounter Qualified Code(s): S93.602A - Unspecified sprain of left foot, initial encounter Instructions: Deep Vein Thrombosis, DI for Foot Sprain Activity Restrictions/Additional Instructions: Use the Pradaxa 2 times daily as prescribed. From the lytes ultrasound seems like the blood clot has become larger since sure initially diagnosed. The foot pain is a simple sprain. Take Tylenol every 4 hours as needed for foot pain. Follow-up with her doctor in 2-3 weeks to recheck the DVT. Return here for chest pain or difficulty breathing. Prescriptions: New Pradaxa 150 mg capsule 150 mg PO BID Qty: 120 RF: 1 No Action losartan 50 MG tablet 50 mg PO DAILY Qty: 0 RF: 0 atorvastatin 20 mg tablet 20 mg PO DAILY RF: 0 Pradaxa 150 mg capsule 150 mg PO BID RF: 0 carvedilol 3.125 mg tablet 3.125 mg PO BID RF: 0 duloxetine 30 mg capsule,delayed release(DR/EC) 30 mg PO BID RF: 0 doxycycline hyclate 100 mg capsule 100 mg PO BID Qty: 20 RF: 0
[2019-07-26 04:23] LABS: Add Manual Diff / Slide Review NO; Basophils Absolute Auto 0 /uL (0-100); Basophils Percent Auto 0.7 % (0-2); Eosinophils Absolute Auto 200 /uL (0-450); Eosinophils Percent Auto 4.5 % (2-4); Hematocrit 44.9 % (41-53); Hemoglobin 14.9 g/dL (13.5-17.5); Lymphocytes Absolute Auto 1500 /uL (1100-4500); Lymphocytes Percent Auto 35.8 % (25-40); Mean Corpuscular HGB Conc 33.3 % (30-36); Mean Corpuscular Hemoglobin 30.7 PG (26-34); Mean Corpuscular Volume 92.4 fL (80-100); Monocytes Absolute Auto 500 /uL (0-900); Monocytes Percent Auto 12.9 % (3-14); Neutrophils Absolute Auto 1900 /uL (1500-7000); Neutrophils Percent Auto 46.1 % (50-75); Platelet Count 147 X10^3/uL (150-400); Red Blood Cell Count 4.86 X10^6/uL (4.5-5.9); Red Cell Distribution Width 14.9 % (11.6-14.8); White Blood Cell Count 4.2 X10^3/uL (4.5-11.0)
[2019-07-26 04:30] LABS: PTT Partial Thromboplastin Tim 30 SECONDS (26.4-36.2)
[2019-07-26 04:31] LABS: BUN Creatinine Ratio 14.3 (6-22); Blood Urea Nitrogen 10 mg/dL (9-20); Calcium 8.9 mg/dL (8.4-10.2); Carbon Dioxide 33 mmol/L (22-32); Chloride 102 mmol/L (98-107); D Dimer 637 ng/mL (<230); Estimated Glomerular Filt Rate > 60.0 mL/min (>60); Glucose 108 mg/dL (80-110); HEMOLYSIS < 15 (0-50); Potassium 3.8 mmol/L (3.4-5.1); Sodium 144 mmol/L (137-145)
[2019-07-26 04:34] LABS: INR 1.1 (0.9-1.3); Prothrombin Time 12.9 SECONDS (10.1-12.7)
--- NOTE | 2019-07-26 04:38 | DI.US.S_ITS ---
PROCEDURE: US PERIPH VENOUS LOW EXTREM LT INDICATIONS: KNOWN DVT; PAIN TECHNIQUE: Real-time imaging, as well as color and pulse Doppler interrogation, were performed of the lower extremity deep veins from the inguinal ligament to the popliteal fossa. COMPARISON: [facility], , US VENOUS LOWER EXTREMITY DOPPLER BILATERAL, 10/24/2018, 11:22. FINDINGS: Occlusive thrombus identified in the left superficial femoral vein. Partially occlusive thrombus identified in the left popliteal vein. The left common femoral vein and deep femoral vein are patent. IMPRESSION: Abnormal study demonstrating deep vein thrombosis involving the left superficial femoral and left popliteal veins. Dictated by: Ana M Shipman MD, PhD on 07/26/2019 at 7:22 Approved by: Ana M Shipman MD, PhD on 07/26/2019 at 7:24
[2019-07-26] MEDS: IBUPROFEN 400 MG TABLET 800 MG PO (09:25)
[2019-07-26] MEDS: DABIGATRAN 75 MG CAPSULE 150 MG PO (09:25)
[2019-07-26 11:20] VITALS: BP 147/79; PULSE 81; RESP 18; O2SAT 98
== END 2019-07-26 11:20 | disposition home or self-care (01) ==
PROVIDERS: Emergency Provider Emergency Medicine; PCP Internal Medicine
DX: I82.412 Acute embolism and thrombosis of left femoral vein (principal); S93.602A Unspecified sprain of left foot, initial encounter; F10.10 Alcohol abuse, uncomplicated
CPT/HCPCS: 36415; 80048; 85025; 85379; 85610; 85730; 93971; 99284

== ENCOUNTER 2019-07-27 21:39 | Emergency (ER) | payer OTHER, MEDICAID, SELFPAY ==
[2019-07-27 21:38] VITALS: BP 109/74; PULSE 95; RESP 20; TEMP 36.9; O2SAT 99
[2019-07-27 22:38] VITALS: PULSE 80
--- NOTE | 2019-07-28 01:42 | ED_ITS ---
HPI - Extremity Problem General Chief complaint: Extremity Problem,Nontraumatic Stated complaint: Lt foot pain Time Seen by Provider: 07/27/19 22:57 Source: patient and EMS Mode of arrival: Ambulatory Limitations: other (Intoxicated) History of Present Illness HPI Narrative: The patient is here by EMS with the same history he presented with 2 nights ago. [place] He is [place]. He slipped off t he bench. He is complaining of left foot pain. He informed a standby person that he has a blood, problem. Was transported here of the same situation. He was seen here 2 nights ago, ultrasound showed left DVT. He was previously on Pradaxa, his Pradaxa was restarted. He had no chest pain or dyspnea, then. He has no chest pain, dyspnea or hemoptysis now. He complains primarily of left foot pain. Previous evaluation at [facility] included x-rays left foot, showed a normal x-ray. The pain is in the arches left foot. I refilled his Pradaxa 2 nights ago. He was given Pradaxa before departing here, but apparently misplaced his prescription. He has had no Pradaxa since then. Related Data Home Medications Medication Instructions Recorded Confirmed losartan 50 mg PO DAILY #0 10/08/16 01/13/19 atorvastatin 20 mg PO DAILY 10/26/18 01/13/19 dabigatran etexilate [Pradaxa] 150 mg PO BID 10/26/18 01/13/19 carvedilol 3.125 mg PO BID 01/13/19 01/13/19 duloxetine 30 mg PO BID 01/13/19 01/13/19 Previous Rx's Medication Instructions Recorded doxycycline hyclate 100 mg PO BID #20 cap 01/13/19 dabigatran etexilate [Pradaxa] 150 mg PO BID #120 cap 07/26/19 dabigatran etexilate [Pradaxa] 150 mg PO BID #60 cap 07/28/19 Allergies Allergy/AdvReac Type Severity Reaction Status Date / Time No Known Drug Allergies Allergy Verified 01/13/19 17:32 Review of Systems Constitutional Comments: Intoxicated. Complains of left leg and left foot pain. No other complaints. No additional detail. Patient History Medical History (Updated 07/28/19 @ 01:47 by Douglas Salazar MD) DVT (deep venous thrombosis) (Acute) Pulmonary embolism (Acute) Surgical History No significant past surgical history (Acute) Social History Smoking Status: Current every day smoker Smoking Status: Current every day smoker alcohol intake frequency: 3 or more drinks per day Substance Use Type: does not use Exam Initial Vital Signs Initial Vital Signs: Vital Signs Temperature 98.5 F 07/27/19 21:38 Pulse Rate 95 H 07/27/19 21:38 Respiratory Rate 20 07/27/19 21:38 Blood Pressure 109/74 07/27/19 21:38 Pulse Oximetry 99 07/27/19 21:38 Const General: cooperative, intoxicated appearing and lethargic HENMT Head: normocephalic and atraumatic Ears: external ears normal and TM's normal bilaterally Nose: external nose normal and No nasal discharge Face and sinus: sinuses nontender, face symmetric, no sinus tenderness and No dry mucous membranes Mouth: oral mucosae normal and moist mucous membranes Teeth and gingiva: dentition normal Throat: tonsils normal and uvula midline Eyes EOM: EOM intact bilaterally and nystagmus Neck Neck: No tender Resp Effort & Inspection: normal respiratory effort Cardio Rate: regular rate Rhythm: regular rhythm Heart Sounds: no click, no gallops, no murmurs and no rubs Pulses: normal peripheral pulses GI Palpation: soft, no hepatosplenomegaly and No tender Auscultation: normal bowel sounds Skin General: no rashes or lesions noted Neuro General: alert, oriented x3, gait normal and no focal motor deficits Cranial Nerves: nystagmus Speech: speech normal Extrem General: full ROM, no pedal edema and no calf tenderness Other: Tenderness in the arch of the left foot. The same complaint is 2 nights ago. Course Course Course Narrative: The patient was again given a dose of Pradaxa. The left leg DVT was proven again 2 nights ago he is given Tylenol for the left foot pain. His nurse placed the mid left foot ortho shoe. He is ambulatory in the ortho shoe. The left foot is neurovascular intact. This is the 2nd visit here in 2 nights while intoxicated, and falling from a bench. There is no head trauma. He was here long enough to clear is thinking, I discussed with him the concern of being on blood thinners and potential falling, but also the concern of not being on the blood thinners. Orders Ordered: Discontinued Medications Acetaminophen (Tylenol) 650 mg PO NOW ONE Stop: 07/28/19 02:00 Last Admin: 07/28/19 02:16 Dose: 650 mg Documented by: LUISA Dabigatran (Pradaxa) 150 mg PO NOW ONE Stop: 07/28/19 02:00 Last Admin: 07/28/19 02:15 Dose: 150 mg Documented by: LUISA Vital Signs Vital signs: Vital Signs - 8 hr 07/28/19 02:34 Pulse Rate 88 Respiratory Rate 18 Pulse Oximetry 97 Discharge Plan Departure Patient Disposition: Home Clinical Impression: Other sprain of left foot, sequela Acute deep vein thrombosis (DVT) of left lower extremity Qualifiers: Affected thrombotic vein of extremity: femoral Qualified Code(s): I82.412 - Acute embolism and thrombosis of left femoral vein Discharge Date/Time: 07/28/19 02:34 Instructions: Deep Vein Thrombosis Activity Restrictions/Additional Instructions: The foot pain is from a sprain. We will give you a ortho shoe to help with the foot pain. Take Tylenol 2 tabs every 4 hours as needed for pain. You of the blood clot in her left leg. You need to take Pradaxa 2 times daily as prescribed. He had follow-up with her doctor in about 4 weeks to re-evaluate her left leg. Avoid alcohol. The alcohol use is potentiating your ability fall, this could lead to serious head injury, especially on blood thinners. Return to an ER if you have a fall and head injury. Prescriptions: New Pradaxa 150 mg capsule 150 mg PO BID Qty: 60 RF: 0 No Action losartan 50 MG tablet 50 mg PO DAILY Qty: 0 RF: 0 atorvastatin 20 mg tablet 20 mg PO DAILY RF: 0 Pradaxa 150 mg capsule 150 mg PO BID RF: 0 Pradaxa 150 mg capsule 150 mg PO BID Qty: 120 RF: 1 carvedilol 3.125 mg tablet 3.125 mg PO BID RF: 0 duloxetine 30 mg capsule,delayed release(DR/EC) 30 mg PO BID RF: 0 doxycycline hyclate 100 mg capsule 100 mg PO BID Qty: 20 RF: 0 Referrals: Marek Donald DO [Primary Care Provider] -
[2019-07-28] MEDS: DABIGATRAN 75 MG CAPSULE 150 MG PO (02:15)
[2019-07-28] MEDS: ACETAMINOPHEN 325 MG TABLET 650 MG PO (02:16)
[2019-07-28 02:34] VITALS: PULSE 88; RESP 18; O2SAT 97
== END 2019-07-28 02:34 | disposition home or self-care (01) ==
PROVIDERS: Emergency Provider Emergency Medicine; PCP Internal Medicine
DX: I82.412 Acute embolism and thrombosis of left femoral vein (principal); S93.602A Unspecified sprain of left foot, initial encounter
CPT/HCPCS: 99283

== ENCOUNTER 2022-03-12 13:26 | Emergency (ER) | payer OTHER, MEDICAID, SELFPAY ==
[2022-03-12] VITALS (11 sets, daily range): BP systolic 100–132; BP diastolic 55–78; PULSE 68–83; RESP 18; O2SAT 92–99; BMI 28.7
--- NOTE | 2022-03-12 14:47 | DI.CT.S_ITS ---
PROCEDURE: CT HEAD/BRAIN WO CON INDICATIONS: etoh TECHNIQUE: Noncontrast 4.5 mm thick angled axial sections acquired from the foramen magnum to the vertex, with coronal and sagittal reformats. For radiation dose reduction, the following was used: automated exposure control, adjustment of mA and/or kV according to patient size. COMPARISON: [facility], CT, CT HEAD WITHOUT CONTRAST, 02/14/2022, 17:59. [facility], CT, CT HEAD WITHOUT CONTRAST, 02/09/2022, 13:45. [facility], CT, CT HEAD WITHOUT CONTRAST, 02/20/2021, 22:04. [facility], CT, CT HEAD/BRAIN WO CON, 01/13/2019, 16:50. FINDINGS: Image quality: Excellent. CSF spaces: Basal cisterns are patent. No extra-axial fluid collections. The ventricles are symmetric in size and shape. Brain: No intracranial bleeds or masses. There is cerebral volume loss for age, with resultant ventricular and sulcal prominence. There are periventricular and deep white matter chronic small vessel ischemic changes. Numerous small areas of stable prior infarction can be seen, including involving the periventricular deep white matter. There is intracranial internal carotid artery atherosclerosis. Skull and face: Calvarium and visualized facial bones appear intact, without suspicious lesions. Sinuses: There is moderate mucosal thickening within the visualized right maxillary sinus. Minimal mucosal thickening is seen elsewhere within the paranasal sinuses. No abnormal fluid is seen within the mastoid air cells. IMPRESSION: Stable intracranial study demonstrating brain parenchymal volume loss and chronic small vessel ischemic change. Numerous small areas of prior infarction can be seen. No acute intracranial hemorrhage is seen. No acute intracranial process is seen. Dictated by: Andrea Ivory M.D. on 03/12/2022 at 14:00 Approved by: Andrea Ivory M.D. on 03/12/2022 at 14:01
[2022-03-12] MEDS: SODIUM CHLORIDE 0.9% 1,000 ML 1000 ML IV (15:10)
[2022-03-12 15:29] LABS: Add Manual Diff / Slide Review NO; Basophils Absolute Auto 0 /uL (0-100); Basophils Percent Auto 0.6 % (0-2); Eosinophils Absolute Auto 100 /uL (0-450); Eosinophils Percent Auto 2.1 % (2-4); Hemoglobin 13.4 g/dL (13.5-17.5); Lymphocytes Absolute Auto 2000 /uL (1100-4500); Lymphocytes Percent Auto 34.8 % (25-40); Mean Corpuscular HGB Conc 34.3 % (30-36); Mean Corpuscular Hemoglobin 30.1 PG (26-34); Mean Corpuscular Volume 87.5 fL (80-100); Monocytes Absolute Auto 300 /uL (0-900); Monocytes Percent Auto 5.9 % (3-14); Neutrophils Absolute Auto 3300 /uL (1500-7000); Neutrophils Percent Auto 56.6 % (50-75); Platelet Count 209 X10^3/uL (150-400); Red Blood Cell Count 4.46 X10^6/uL (4.5-5.9); Red Cell Distribution Width 14.4 % (11.6-14.8); White Blood Cell Count 5.8 X10^3/uL (4.5-11.0)
[2022-03-12 15:45] LABS: Alanine Aminotransferase 18 IU/L (<50); Albumin Globulin Ratio 1.3 (1.0-2.8); Alkaline Phosphatase 71 U/L (38-126); Aspartate Aminotransferase 32 IU/L (17-59); BUN Creatinine Ratio 20.3 (6-22); Bilirubin Total 0.3 mg/dL (0.2-1.3); Blood Urea Nitrogen 14 mg/dL (9-20); Calcium 8.8 mg/dL (8.4-10.2); Carbon Dioxide 24 mmol/L (22-32); Chloride 107 mmol/L (98-107); Estimated Glomerular Filt Rate > 60 mL/min (>60); Glucose 115 mg/dL (80-110); HEMOLYSIS < 15 (0-50); Lipase 122 U/L (23-300); Potassium 4.2 mmol/L (3.4-5.1); Sodium 145 mmol/L (137-145)
[2022-03-12 15:52] LABS: Ethanol (ETOH) 331 mg/dL
--- NOTE | 2022-03-12 16:38 | ED_ITS ---
HPI - Alcohol General Chief Complaint: Toxicology Problem Stated Complaint: Intoxication Time Seen by Provider: 03/12/22 15:11 Source: patient and EMS Mode of arrival: EMS History of Present Illness HPI narrative: Patient is a 61-year-old male with history of hypertension, DVT, pulmonary emboli, CVA anticoagulated on Pradaxa, alcohol abuse who presents today with alcohol intoxication. He apparently has had multiple falls secondary to alcohol use. He was seen at [facility] on 02/14/2022 for the same where he suffered a laceration. Today he says he drank alcohol and passed out. He could not tell me if he fell. He says he staying in a hotel. He said mostly he got worried and called the aid car. He has no numbness tingling or weakness. He denies any chest pain shortness of breath nausea vomiting or abdominal pain. States that he does not drink daily. He can not recall why he drank alcohol today. Who blood pressure dropped a little once he got here. The is awake and alert. EMS reports he was completely unresponsive on a floor in a motel. States he was found unresponsive by hotel staff, at which point EMS was called. Related Data Home Medications Medication Instructions Recorded Confirmed losartan 50 mg tablet 50 mg PO DAILY ##0 10/08/16 01/13/19 atorvastatin 20 mg tablet 20 mg PO DAILY 10/26/18 01/13/19 dabigatran etexilate 150 mg capsule 150 mg PO BID 10/26/18 01/13/19 carvedilol 3.125 mg tablet 3.125 mg PO BID 01/13/19 01/13/19 duloxetine 30 mg capsule,delayed 30 mg PO BID 01/13/19 01/13/19 release Previous Rx's Medication Instructions Recorded doxycycline hyclate 100 mg capsule 100 mg PO BID #20 caps 01/13/19 dabigatran etexilate 150 mg 150 mg PO BID #120 caps 07/26/19 capsule (Pradaxa) dabigatran etexilate 150 mg 150 mg PO BID #60 caps 07/28/19 capsule (Pradaxa) Allergies Allergy/AdvReac Type Severity Reaction Status Date / Time No Known Drug Allergies Allergy Verified 01/13/19 17:32 Review of Systems Review of Systems Narrative: GENERAL: Denies chills, fatigue, malaise, fever, sweats, travel HEENT: Denies sinus pain, ear pain, sore throat, difficulty swallowing, neck pain RESPIRATORY: Denies dyspnea, cough, wheezing, hemoptysis, sputum. CARDIOVASCULAR: Denies chest pain, palpitations, orthopnea, edema GASTROINTESTINAL: Denies nausea, vomiting, abdominal pain, diarrhea, constipation, melena. : Denies dysuria, frequency, incontinence, hematuria, urinary retention, flank pain. MUSCULOSKELETAL: Denies weakness, joint pain, or bony pain SKIN: No rash, no erythema, no pruritus NEUROLOGIC: Frequent falls PSYCHIATRIC: See HPI 12 point review of systems is negative except for those stated above and HPI Patient History Medical History DVT (deep venous thrombosis) Pulmonary embolism Surgical History No significant past surgical history Social History Smoking Status: Current every day smoker Smoking Status: Current every day smoker alcohol intake frequency: 3 or more drinks per day Substance Use Type: does not use Exam Initial Vital Signs Initial Vital Signs: Vital Signs Pulse Rate 82 03/12/22 13:29 Pulse Oximetry 96 03/12/22 13:29 GENERAL: Sleeping but easily arousable 61-year-old male A&O x3 HEENT: Head atraumatic,EOMI, pupils reactive, face symmetric, moist mucous membranes CARDIOVASCULAR: Regular rate and rhythm without murmurs, rubs or gallops. RESPIRATORY: Breath sounds equal bilaterally, no wheezes rales or rhonchi. ABDOMEN: Soft, nontender. Normoactive bowel sounds all 4 quadrants. No guarding or rebound. EXTREMITIES: Normal range of motion, no clubbing or edema. Neurovascularly intact NEUROLOGICAL: Alert and oriented x3. Ship/Rec/Doc Control strength equal bilaterally SKIN: Warm, dry, no laceration, no petechiae, no rashes or lesions. Course Orders Ordered: ED Orders 03/12/22 14:47 CT head/brain wo con Stat 03/12/22 15:05 CBC Auto Diff [Complete Blood Count AUTO DIFF] Stat CMP [Comprehensive Metabolic Panel] Stat ETOH [Ethanol (ETOH)] Stat Lipase Stat Discontinued Medications Sodium Chloride (Normal Saline 0.9%) 1,000 mls @ 1,000 mls/hr IV BOLUS ONE Stop: 03/12/22 15:36 Last Infusion: 03/12/22 17:15 Dose: 0 mls/hr Documented By: Admin: 03/12/22 15:10 Dose: 1,000 mls/hr Documented By: NR Vital Signs Vital signs: Vital Signs - 8 hr 03/12/22 13:30 03/12/22 13:29 03/12/22 13:30 Pulse Rate 83 82 Respiratory Rate 18 Blood Pressure 118/67 118/67 Pulse Oximetry 98 96 Oxygen Delivery Method Room Air 03/12/22 13:30 03/12/22 14:00 03/12/22 14:00 Pulse Rate 81 77 Respiratory Rate Blood Pressure 100/59 L Pulse Oximetry 95 92 Oxygen Delivery Method 03/12/22 14:30 03/12/22 14:30 03/12/22 14:52 Pulse Rate 71 73 Respiratory Rate Blood Pressure 106/55 L Pulse Oximetry 93 93 Oxygen Delivery Method 03/12/22 14:52 03/12/22 15:00 03/12/22 15:00 Pulse Rate 70 Respiratory Rate Blood Pressure 103/59 L 106/63 Pulse Oximetry 95 Oxygen Delivery Method 03/12/22 15:30 03/12/22 15:30 03/12/22 16:00 Pulse Rate 73 Respiratory Rate Blood Pressure 109/62 132/75 Pulse Oximetry 94 Oxygen Delivery Method 03/12/22 16:00 03/12/22 16:30 03/12/22 17:34 Pulse Rate 68 76 75 Respiratory Rate Blood Pressure Pulse Oximetry 98 98 99 Oxygen Delivery Method 03/12/22 17:35 03/12/22 17:35 Pulse Rate 77 Respiratory Rate Blood Pressure 129/78 Pulse Oximetry 99 Oxygen Delivery Method MDM - Alcohol Lab Data Result diagrams: 03/12/22 15:05 03/12/22 15:05 Labs: Lab Results 03/12/22 03/12/22 03/12/22 Range/Units 15:05 15:05 15:05 WBC 5.8 (4.5-11.0) X10^3/uL RBC 4.46 L (4.5-5.9) X10^6/uL Hgb 13.4 L (13.5-17.5) g/dL Hct 39.0 L (41-53) % MCV 87.5 (80-100) fL MCH 30.1 (26-34) PG MCHC 34.3 (30-36) % RDW 14.4 (11.6-14.8) % Plt Count 209 (150-400) X10^3/uL Neut % (Auto) 56.6 (50-75) % Lymph % (Auto) 34.8 (25-40) % Giles % (Auto) 5.9 (3-14) % Eos % (Auto) 2.1 (2-4) % Baso % (Auto) 0.6 (0-2) % Neut # (Auto) 3300 (1770-4005) /uL Lymph # (Auto) 2000 (8499-8362) /uL Giles # (Auto) 300 (0-900) /uL Eos # (Auto) 100 (0-450) /uL Baso # (Auto) 0 (0-100) /uL Sodium 145 (137-145) mmol/L Potassium 4.2 (3.4-5.1) mmol/L Chloride 107 (98-107) mmol/L Carbon Dioxide 24 (22-32) mmol/L BUN 14 (9-20) mg/dL Creatinine 0.69 (0.66-1.25) mg/dL Estimated GFR > 60 (>60) mL/min BUN/Creatinine Ratio 20.3 (6-22) Glucose 115 H (80-110) mg/dL Calcium 8.8 (8.4-10.2) mg/dL Total Bilirubin 0.3 (0.2-1.3) mg/dL AST 32 (17-59) IU/L ALT 18 (<50) IU/L Alkaline Phosphatase 71 (38-126) U/L Total Protein 7.0 (6.3-8.2) g/dL Albumin 4.0 (3.5-5.0) g/dL Globulin 3.0 (1.7-4.1) g/dL Albumin/Globulin Ratio 1.3 (1.0-2.8) Lipase 122 (23-300) U/L Ethyl Alcohol 331 H ( - 10) mg/dL Imaging Data CT scan - head: Radiologist's Impressoin: [address] [address] [address] Scan Report Signed Patient: Andrea Pastrana MR#: [id number] : 1960 Acct:[id number] Age/Sex: 61 / M Date of Service: 03/12/22 Loc: ED Accession Number: [id number] ?? Procedure: CT head/brain wo con Ordering Provider: Elizabet Yang D.O. PROCEDURE:? CT HEAD/BRAIN WO CON ? INDICATIONS:? etoh ? TECHNIQUE:? Noncontrast 4.5 mm thick angled axial sections acquired from the foramen magnum to the vertex, with coronal and sagittal reformats.? For radiation dose reduction, the following was used:? automated exposure control, adjustment of mA and/or kV according to patient size.? ? COMPARISON:? [facility], CT, CT HEAD WITHOUT CONTRAST, 02/14/2022, 17:59.? [facility], CT, CT HEAD WITHOUT CONTRAST, 02/09/2022, 13:45.? [facility], CT, CT HEAD WITHOUT CONTRAST, 02/20/2021, 22:04.? [facility], CT, CT HEAD/BRAIN WO CON, 01/13/2019, 16:50. ? FINDINGS:? Image quality:? Excellent.? ? CSF spaces:? Basal cisterns are patent.? No extra-axial fluid collections.? The ventricles are symmetric in size and shape.? ? Brain:? No intracranial bleeds or masses.? There is cerebral volume loss for age, with resultant ventricular and sulcal prominence.? There are periventricular and deep white matter chronic small vessel ischemic changes.? Numerous small areas of stable prior infarction can be seen, including involving the periventricular deep white matter.? There is intracranial internal carotid artery atherosclerosis.? ? Skull and face:? Calvarium and visualized facial bones appear intact, without suspicious lesions.? ? Sinuses:? There is moderate mucosal thickening within the visualized right ma xillary sinus.? Minimal mucosal thickening is seen elsewhere within the paranasal sinuses. No abnormal fluid is seen within the mastoid air cells. ? ? IMPRESSION:? Stable intracranial study demonstrating brain parenchymal volume loss and chronic small vessel ischemic change. ? Numerous small areas of prior infarction can be seen. ? No acute intracranial hemorrhage is seen.? ? No acute intracranial process is seen.? ? ? Dictated by: Andrea Ivory M.D. on 03/12/2022 at 14:00 ? ? Approved by: Andrea Ivory M.D. on 03/12/2022 at 14:01 ? [facility] Narrative Medical decision making narrative: Son is the patient is a known alcoholic on anticoagulation. He and I discussed the risks of but combined 2. The patient is obviously intoxicated with alcohol level of 331. However he is clinically sober ambulates without difficulty he has no significant slurring of speech. Workup in the emergency department negative negative head CT blood work otherwise reassuring. At this time he is not hypoxic having chest pain or any shortness of breath I see no need for further workup for his history of pulmonary embolism. Upon record review he has had many visits to [facility] February 09 for his alcohol intoxication. Her previously was sober for 2 months and fell off the wagon. During his visits he had alcohol level 386, 285 on February 09 and February 14 respectively he was set up with a PCP for establishing care The patient overall is a poor candidate for anticoagulation, however I think he has had multiple DVTs and PEs. Discharge Plan Departure Patient Disposition: Home Clinical Impression: Alcohol intoxication Instructions: DI for Alcohol Use Disorder Activity Restrictions/Additional Instructions: *You have been diagnosed with alcohol intoxication *What to do: At this time alcohol put to at risk for falling and falling on Pradaxa can cause brain bleeding, which can lead to disability and . I strongly advised that he would he talks and stop drinking alcohol. Do not stop drinking alcohol without supervision *Continue to take medications as directed *Follow up with your primary care provider in 2-3 days or call [phone] *Return to ER if you should have increasing falls could fusion shortness of breath chest pain or any new, worsening or concerning symptoms Prescriptions: No Action losartan 50 MG tablet 50 mg PO DAILY Qty: 0 atorvastatin 20 mg tablet 20 mg PO DAILY Pradaxa 150 mg capsule 150 mg PO BID Label Comments: take 1 capsule by mouth twice a day Pradaxa 150 mg capsule 150 mg PO BID Qty: 120 1RF carvedilol 3.125 mg tablet 3.125 mg PO BID Label Comments: TAKE 1 TABLET BY MOUTH TWICE DAILY WITH MEALS duloxetine 30 mg capsule,delayed release(DR/EC) 30 mg PO BID Label Comments: TAKE 1 CAPSULE BY MOUTH ONCE DAILY AND MAY INCREASE TO TWICE DAILY AFTER 2 WEEKS doxycycline hyclate 100 mg capsule 100 mg PO BID Qty: 20 0RF Pradaxa 150 mg capsule 150 mg PO BID Qty: 60 0RF Referrals: Marek Donald DO [Primary Care Provider] - Visit Report Forms: Patient Portal/API
== END 2022-03-12 17:42 | disposition home or self-care (01) ==
PROVIDERS: Emergency Provider Emergency Medicine; PCP Internal Medicine
DX: F10.129 Alcohol abuse with intoxication, unspecified (principal); Y90.8 Blood alcohol level of 240 mg/100 ml or more; Z79.01 Long term (current) use of anticoagulants
CPT/HCPCS: 36415; 70450; 80053; 80320; 83690; 85025; 96360; 96361; 99284

== ENCOUNTER → 2024-05-11 06:56 | Outpatient (CLI) | payer OTHER, SELFPAY ==
--- NOTE | 2024-05-11 06:58 | DI.ECHO.S_ITS ---
[facility] : : [address] : [facility] : : [place], : : [place] [address] : : Phone: [phone] Echocardiogram Report + + :Name: NATALY KINENY Study Date: 05/11/2024 Height: 68 in : :[facility] ReadingLocation: Weight: 170 lb : : Gender: Male BSA: 1.9 m2 : :: 1960 Age: 63 yrs BP: 114/70 mmHg: :Reason For Study: MOBITZ TYPE 1, 2ND DEGREE AV BLOCK, SYNCOPE : :Ordering Physician: ALDEN, : :TOM Performed By: Hakan Cortés : :Referring: TOM AGOSTO : + + Interpretation Summary The left ventricle is normal in size. Left ventricular systolic function appears normal without focal wall motion abnormalities. The ejection fraction is estimated to be 55-60%. The right ventricle is normal in size and function. The right ventricular systolic pressure is estimated to be at least 29 mmHg based on an estimated right atrial pressure of 3 mm Hg. The left atrium is mildly dilated. There is no significant valvular heart disease. Procedure: A two-dimensional transthoracic echocardiogram with color flow and Doppler was performed. The study quality was technically good. Comparison is made with the echocardiogram of 02/21/2021. The patient was in heart block during the exam. Left Ventricle: The left ventricle is normal in size. There is normal left ventricular wall thickness. There is no ventricular septal defect visualized. Left ventricular systolic function appears normal without focal wall motion abnormalities. The ejection fraction is estimated to be 55-60%. Diastolic function could not be accurately assessed due to unobtainable data. Right Ventricle: The right ventricle is normal in size and function. Atria: The left atrium is mildly dilated. The right atrium is moderately dilated. There is no Doppler evidence for an atrial septal defect. Mitral Valve: The mitral valve leaflets appear mildly thickened, but open well. There is mild mitral annular calcification. There is trace mitral regurgitation. Aortic Valve: The aortic valve is trileaflet. The aortic valve opens well. The aortic valve is slightly calcified. No aortic regurgitation is present. Tricuspid Valve: The tricuspid valve is normal in structure and function. There is trace tricuspid regurgitation. The right ventricular systolic pressure is estimated to be at least 29 mmHg based on an estimated right atrial pressure of 3 mm Hg. Pulmonic Valve: The pulmonic valve is normal in structure and function. There is no pulmonic valvular regurgitation. There is no significant valvular heart disease. Great Vessels: The aortic root is normal size. The dimensions of the ascending aorta are normal. The pulmonary artery is normal size. The IVC is of normal diameter and collapses greater than 50% with a sniff. This suggests a low right atrial pressure of 3 mm Hg. Pericardium/ Pleura There is no pericardial effusion. There is no pleural effusion. MMode/2D Measurements & Calculations LVIDd: 5.2 cm AoV Openin.9 cm LVIDs: 4.1 cm LVOT diam: 2.1 cm IVSd: 0.95 cm Ao root diam: 3.4 cm LVPWd: 0.81 cm asc Aorta Diam: 2.9 cm LV granger. diameter/BSA (cm/m^2): 2.8 LV sys. diameter/BSA (cm/m^2): 2.1 FS: 22.3 % EPSS: 0.51 cm LA A2 area: 21.6 cm2 RA long axis: 5.8 cm LA A4 area: 22.4 cm2 RA area: 24.7 cm2 LA length (vol): 5.7 cm RA vol: 89.8 ml LA vol: 72.2 ml RA : 47.1 ml/m2 LA vol index: 37.8 ml/m2 RVD1 (basal): 3.8 cm IVC diam: 2.0 cm RVD2 (mid): 3.3 cm TAPSE: 3.2 cm Doppler Measurements & Calculations Ao V2 max: 175.9 cm/sec LVOT Max Gaston: 135.7 cm/sec Ao V2 mean: 115.7 cm/sec LV V1 max P.4 mmHg Ao V2 VTI: 41.6 cm LV V1 VTI: 35.0 cm Ao max P.4 mmHg Ao mean P.1 mmHg AGUILA(I,D): 2.8 cm2 MV E max gaston: 116.4 cm/sec AGUILA(V,D): 2.6 cm2 MV A max gaston: 53.4 cm/sec AGUILA indexed to BSA (cm^2/m^2): 1.5 MV E/A: 2.2 sev ratio: 0.84 Med Peak E' Gaston: 11.4 cm/sec E/E' med: 10.2 Lat Peak E' Gaston: 11.9 cm/sec E/E' lat: 9.8 E/e' average: 10.0 MV dec time: 0.17 sec TR max gaston: 256.9 cm/sec TR max P.4 mmHg PA V2 max: 84.4 cm/sec SV(LVOT): 118.5 ml PA V2 mean: 62.8 cm/sec PA mean P.7 mmHg PA pr(Accel): 32.8 mmHg Reading Physician:12:22 PM
== END ==
PROVIDERS: PCP Physician Assistant; Referring Provider Internal Medicine Cardiovascular Disease; Visit Provider Internal Medicine Cardiovascular Disease
DX: I44.1 Atrioventricular block, second degree (principal); R55 Syncope and collapse; I49.3 Ventricular premature depolarization; I34.81 Nonrheumatic mitral (valve) annulus calcification
CPT/HCPCS: 93306